=== PATIENT | male | born 1930 | race Caucasian/White ===

== ENCOUNTER 2018-06-14 18:55 | Inpatient (IN) | payer MEDICARE, BC ==
[2018-06-14 19:38] LABS: BASOPHIL % 0.3 % (0.0-0.4); Basophil (Absolute #) 0.02 (0-0.4); Eosinophil % 2.3 % (0.00-5.0); Eosinophil (Absolute #) 0.18 (0-0.5); Granulocyte Absolute (ANC) 5.94 (1.4-6.9); Hematocrit 40.3 % (42-50); Hemoglobin 12.8 gm/dl (12.5-18.0); Lymphocytes % 14.1 % (24.0-44.0); Mean Cell Volume 93.5 fl (78-100); Mean Corpuscular Hemoglobin 29.7 pg (26-32); Mean Corpuscular Hgb Concent. 31.8 g/dl (32-36); Mean Platelet Volume 8.6 fl (6-9.5); Monocyte (Absolute #) 0.57 (0.0-1.3); Monocytes % 7.3 % (0.0-12.0); Platelet Count 248 K/mm3 (150-450); Red Blood Count 4.31 M/mm3 (4.1-5.6); Red Cell Distribution Width 14.9 % (11.5-14.0); White Blood Count 7.8 K/mm3 (4.0-10.5)
[2018-06-14 19:47] LABS: INR 3.22 (0.8-3.0); PROTIME 37.9 SECONDS (8.83-12.87)
[2018-06-14 19:50] LABS: ALBUMIN 3.5 g/dL (3.5-5.0); ALKALINE PHOSPHATASE 81 U/L (38-126); ANION GAP 10.4 MEQ/L (5-15); BLOOD UREA NITROGEN 14 mg/dL (9-20); CHLORIDE 96 mmol/L (98-107); Calcium 8.7 mg/dL (8.4-10.2); Carbon Dioxide 34 mmol/L (22-30); Glucose 111 mg/dL (74-106); LIPASE 20 U/L (23-300); Potassium 3.3 mmol/L (3.5-5.1); SGOT/AST 13 U/L (17-59); SGPT/ALT 9 U/L (0-50); SODIUM 137 mmol/L (137-145); Total Protein 6.3 g/dL (6.3-8.2)
[2018-06-14] MEDS ORDERED: Klor Con 10 MEQ PO ONE (20:13)
--- NOTE | 2018-06-14 21:59 | ERPHSYRPT ---
- History of Present Illness Historian: shelter records Exam Limitations: clinical condition Patient Subjective Stated Complaint: pt arrived per ambulance for shortness of breath today and was placed on o2, but pt has no cos at present time. but he told ambulance that is abd is large and distended and hard and that is not normal for him. Triage Nursing Assessment: pt alert, but confused at time. skin w/d/p. resp easy ,chest clear, abd large distended,and firm, pt has fc in place with a leg bag and uring in bag Physician History: Pt was brought to the ED from [facility] for SOB. Pt in his room, complaining of severe abdominal distention. He is a poor historian, and can't get clear ROS and history from him. Pt denies SOB, abd pain, N/V. He just states "they are supposed to make a hole in my stomach and get all the air out". Timing/Duration: today Activities at Onset: none Quality: tightness Modifying Factors: Improves With: nothing Previous symptoms: recent hospitalization Allergies/Adverse Reactions: No Known Drug Allergies Allergy (Verified 06/14/18 19:07) Home Medications: Alendronate Sodium 70 mg [Fosamax 70 MG] 70 mg PO Q7D@0600 04/21/16 [ History] Ascorbic Acid [C-500] 500 mg PO DAILY 04/21/16 [History] Cephalexin Mh 500 mg [Keflex 500 mg] 500 mg PO TID 04/21/16 [History] Citalopram Hydrobromide 20 mg* [ceLEXa 20 MG] 20 mg PO DAILY 04/21/16 [ History] Digoxin [Digitek] 250 mcg PO DAILY 04/21/16 [History] Docusate Sodium 100 mg [Colace 100 MG] 100 mg PO BID 04/21/16 [History] Losartan Potassium [Cozaar] 50 mg PO DAILY 04/21/16 [History] Mag Hydrox/Al Hydrox/Simeth [Mylanta Maximum Strength Liq] 30 ml PO Q4HPRN PRN 04/21/16 [History] Multivitamin [Multivitamins] 1 each PO DAILY 04/21/16 [History] Oxycodone HCl/Acetaminophen [Percocet 5-325 mg Tablet] 1 - 2 each PO Q4-6HPRN PRN 04/21/16 [History] Polyethylene Glycol 3350 17 gm [Miralax Powder 17GM PACKET] 17 gm PO DAILY [History] Quetiapine Fumarate [Seroquel] 25 mg PO DAILY 04/21/16 [History] Tamsulosin HCl 0.4 mg [Flomax 0.4 MG] 0.4 mg PO BID 04/21/16 [History] Tramadol HCl 50 mg [Ultram 50 mg] 50 mg PO Q6H PRN PRN 04/21/16 [History] Warfarin Sodium 3 mg [Coumadin 3 MG] 3 mg PO DAILY 04/21/16 [History] Hx Tetanus, Diphtheria Vaccination/Date Given: No (UNKNOWN) Hx Influenza Vaccination/Date Given: Yes Hx Pneumococcal Vaccination/Date Given: Yes Immunizations Up to Date: No - Review of Systems Constitutional: Other (Pt is poor historian with dementia. Could not get clear history and ROS) Abdominal/Gastrointestinal: Other (abdominal distention) - Past Medical History Pertinent Past Medical History: Yes Neurological History: No Pertinent History ENT History: Cataracts Cardiac History: Hypertension Respiratory History: No Pertinent History Musculoskeletal History: Fractures, Osteoporosis History: Other Psycho-Social History: Depression Male Reproductive Disorders: Prostate Cancer Other Medical History: PROSTATE CA. MULTIPLE HEALING FRACTURES - Past Surgical History Past Surgical History: Yes Other Surgical History: hand surgery - Social History Smoking Status: Former smoker Exposure to second hand smoke: No Drug Use: none Patient Lives Alone: No Significant Family History: other (lung cancer father) - Nursing Vital Signs Nursing Vital Signs: Initial Vital Signs Temperature 97.2 F 06/14/18 18:57 Pulse Rate 96 H 06/14/18 18:57 Respiratory Rate 20 06/14/18 18:57 Blood Pressure 122/78 06/14/18 18:57 O2 Sat by Pulse Oximetry 98 06/14/18 18:57 Pain Scale Pain Intensity 0 - Physical Exam General Appearance: no apparent distress, alert Ears, Nose, Throat Exam: normal ENT inspection, pharynx normal, moist mucous membranes Respiratory Exam: other (no air movement on the right. Otherwise no wheeze or crackles were ascultated.) Cardiovascular Exam: normal heart sounds, irregular Gastrointestinal/Abdomen Exam: distention (marked) SpO2: 98 - Radiology Exams Abdomen X-ray Interpretation: Interpreted by me (SBO, marked dilated bowel loops) Chest X-ray Interpretation: Interpreted by me (Marked right sided pleural effusion) Ordered Tests: Active Orders 24 hr Category Date Time Status EKG-ER Only STAT Care 06/14/18 19:09 Active IV Insertion STAT Care 06/14/18 19:09 Active NG to Suction (Insertion) ROUTINE Care 06/14/18 22:10 Active NPO (ED) STAT Care 06/14/18 19:09 Active ABDOMEN AND PELVIS W/0 CONTRAS [CT] Stat Exams 06/14/18 21:40 Taken CHEST 2 VIEWS (PA AND LAT) Stat Exams 06/14/18 19:10 Taken CHEST WITHOUT CONTRAST [CT] Stat Exams 06/14/18 21:40 Taken KUB Stat Exams 06/14/18 19:10 Taken KUB Stat Exams 06/14/18 21:58 Taken BLOOD CULTURE Stat Lab 06/14/18 19:32 Received CBC W DIFF Stat Lab 06/14/18 19:27 Completed CMP Stat Lab 06/14/18 19:27 Completed LIPASE Stat Lab 06/14/18 19:27 Completed Lactic Acid Stat Lab 06/14/18 19:26 Completed PROTIME WITH INR Stat Lab 06/14/18 19:27 Completed TROPONIN Q3H Lab 06/14/18 19:27 Completed TROPONIN Q3H Lab 06/14/18 22:18 Completed TROPONIN Q3H Lab 06/15/18 01:15 Ordered TROPONIN Q3H Lab 06/15/18 04:15 Ordered TROPONIN Q3H Lab 06/15/18 07:15 Ordered UA W/RFX UR CULTURE Stat Lab 06/14/18 19:10 Uncollected Medication Summary Discontinued Medications Generic Name Dose Route Start Last Admin Trade Name Freq PRN Reason Stop Dose Admin Potassium Chloride 40 meq 06/14/18 20:13 06/14/18 22:03 Klor Con 10 Meq PO 06/14/18 20:14 Not Given STAT ONE Lab/Rad Data: Laboratory Result Diagrams 06/14/18 19:27 06/14/18 19:27 Laboratory Results 06/14/18 06/14/18 06/14/18 Range/Units 22:18 19:27 19:27 WBC (4.0-10.5) K/mm3 RBC (4.1-5.6) M/mm3 Hgb (12.5-18.0) gm/dl Hct (42-50) % MCV (78-100) fl MCH (26-32) pg MCHC (32-36) g/dl RDW (11.5-14.0) % Plt Count (150-450) K/mm3 MPV (6-9.5) fl Gran % (36.0-66.0) % Eos # (Auto) (0-0.5) Absolute Lymphs (auto) (1.0-4.6) Absolute Monos (auto) (0.0-1.3) Lymphocytes % (24.0-44.0) % Monocytes % (0.0-12.0) % Eosinophils % (0.00-5.0) % Basophils % (0.0-0.4) % Absolute Granulocytes (1.4-6.9) Basophils # (0-0.4) PT 37.9 H (8.83-12.87) SECONDS INR 3.22 H (0.8-3.0) Sodium (137-145) mmol/L Potassium (3.5-5.1) mmol/L Chloride (98-107) mmol/L Carbon Dioxide (22-30) mmol/L Anion Gap (5-15) MEQ/L BUN (9-20) mg/dL Creatinine (0.66-1.25) mg/dL Estimated GFR ML/MIN Glucose (74-106) mg/dL Lactic Acid (0.4-2.0) Calcium (8.4-10.2) mg/dL Total Bilirubin (0.2-1.3) mg/dL AST (17-59) U/L ALT (0-50) U/L Alkaline Phosphatase (38-126) U/L Troponin I 0.012 0.012 (0.000-0.034) ng/mL Serum Total Protein (6.3-8.2) g/dL Albumin (3.5-5.0) g/dL Lipase (23-300) U/L 06/14/18 06/14/18 06/14/18 Range/Units 19:27 19:27 19:26 WBC 7.8 (4.0-10.5) K/mm3 RBC 4.31 (4.1-5.6) M/mm3 Hgb 12.8 (12.5-18.0) gm/dl Hct 40.3 L (42-50) % MCV 93.5 (78-100) fl MCH 29.7 (26-32) pg MCHC 31.8 L (32-36) g/dl RDW 14.9 H (11.5-14.0) % Plt Count 248 (150-450) K/mm3 MPV 8.6 (6-9.5) fl Gran % 76.0 H (36.0-66.0) % Eos # (Auto) 0.18 (0-0.5) Absolute Lymphs (auto) 1.10 (1.0-4.6) Absolute Monos (auto) 0.57 (0.0-1.3) Lymphocytes % 14.1 L (24.0-44.0) % Monocytes % 7.3 (0.0-12.0) % Eosinophils % 2.3 (0.00-5.0) % Basophils % 0.3 (0.0-0.4) % Absolute Granulocytes 5.94 (1.4-6.9) Basophils # 0.02 (0-0.4) PT (8.83-12.87) SECONDS INR (0.8-3.0) Sodium 137 (137-145) mmol/L Potassium 3.3 L (3.5-5.1) mmol/L Chloride 96 L (98-107) mmol/L Carbon Dioxide 34 H (22-30) mmol/L Anion Gap 10.4 (5-15) MEQ/L BUN 14 (9-20) mg/dL Creatinine 1.00 (0.66-1.25) mg/dL Estimated GFR > 60.0 ML/MIN Glucose 111 H (74-106) mg/dL Lactic Acid 1.0 (0.4-2.0) Calcium 8.7 (8.4-10.2) mg/dL Total Bilirubin 0.70 (0.2-1.3) mg/dL AST 13 L (17-59) U/L ALT 9 (0-50) U/L Alkaline Phosphatase 81 (38-126) U/L Troponin I (0.000-0.034) ng/mL Serum Total Protein 6.3 (6.3-8.2) g/dL Albumin 3.5 (3.5-5.0) g/dL Lipase 20 L (23-300) U/L - Progress Progress: unchanged Discussed with : Stephenie Will see patient in: hospital (full admit) - Departure Time of Disposition: 00:14 Departure Disposition: In-patient Admission Clinical Impression: Pleural effusion, History of prostate cancer, [place] Condition: Stable Critical Care Time: No Referrals: DOCTOR,NO FAMILY [Primary Care Provider] -
[2018-06-15] MEDS ORDERED: PROVENTIL 2.5 MG/3 ML NEB IH PRN (00:16)
[2018-06-15] MEDS ORDERED: Zofran 4 MG/2 ML VIAL IV PRN (00:16)
[2018-06-15 01:45] LABS: Appearance CLOUDY (CLEAR); Bacteria MODERATE /HPF (NEGATIVE); Bilirubin NEGATIVE (NEGATIVE); Blood SMALL Ery/ul (0-5); Glucose NEGATIVE (NEGATIVE); Ketones TRACE (NEGATIVE); Leukocyte Esterase LARGE (NEGATIVE); Mucus SLIGHT /HPF (NEGATIVE); Nitrite NEGATIVE (NEGATIVE); Protein,Urine Dip 30 (Negative); RBC 51-100 /HPF (0-2); Specific Gravity 1.017 (1.005-1.025); Urobilinogen NEGATIVE mg/dL (0-1); WBC >100 /HPF (0-5)
[2018-06-15] MEDS ORDERED: ROCEPHIN 1 Gm-D5w 50 ml Bag** 1 G/50 ML IVPB IV STA (01:49)
[2018-06-15] MEDS ORDERED: ROCEPHIN 1 Gm-D5w 50 ml Bag** 1 G/50 ML IVPB IV ONE (01:56)
[2018-06-15] MEDS ORDERED: DUONEB 0.5-3 MG/3 ml Neb IH PRN (04:23)
[2018-06-15 05:02] LABS: ALBUMIN 2.9 g/dL (3.5-5.0); ALKALINE PHOSPHATASE 62 U/L (38-126); ANION GAP 6.8 MEQ/L (5-15); BLOOD UREA NITROGEN 13 mg/dL (9-20); CHLORIDE 98 mmol/L (98-107); Calcium 8.1 mg/dL (8.4-10.2); Carbon Dioxide 35 mmol/L (22-30); Creatinine 1 0.87 mg/dL (0.66-1.25); Glucose 99 mg/dL (74-106); Potassium 3.1 mmol/L (3.5-5.1); SGOT/AST 11 U/L (17-59); SGPT/ALT 8 U/L (0-50); SODIUM 136 mmol/L (137-145); Total Protein 5.3 g/dL (6.3-8.2)
[2018-06-15 05:58] LABS: BASOPHIL % 0.3 % (0.0-0.4); Basophil (Absolute #) 0.02 (0-0.4); Eosinophil % 3.8 % (0.00-5.0); Eosinophil (Absolute #) 0.23 (0-0.5); Granulocytes % 67.5 % (36.0-66.0); Hematocrit 36.2 % (42-50); Hemoglobin 11.3 gm/dl (12.5-18.0); Lymphocyte (Absolute #) 1.09 (1.0-4.6); Mean Cell Volume 93.3 fl (78-100); Mean Corpuscular Hemoglobin 29.1 pg (26-32); Mean Corpuscular Hgb Concent. 31.2 g/dl (32-36); Mean Platelet Volume 9.1 fl (6-9.5); Monocyte (Absolute #) 0.63 (0.0-1.3); Monocytes % 10.4 % (0.0-12.0); Platelet Count 243 K/mm3 (150-450); Red Blood Count 3.88 M/mm3 (4.1-5.6); Red Cell Distribution Width 14.9 % (11.5-14.0); White Blood Count 6.1 K/mm3 (4.0-10.5)
--- NOTE | 2018-06-15 08:48 | XRAY ---
Indication: Short of breath. Multiple contiguous axial images obtained through the chest without contrast as ordered. Comparison: None Moderate right and mild left pleural effusions with compressive atelectasis. Additional scattered fibrosis/scarring, right greater than left. Tiny left lower lobe calcified granuloma. Heart is borderline enlarged without pericardial effusion. Aorta is normal in course and caliber. Scattered aortic and coronary calcifications. Subcarinal chunky calcified node. No pathologic mediastinal lymphadenopathy. Enlarged right thyroid gland with bilateral thyroid calcifications. NG tube traverses the chest with the tip in the stomach. Bony thorax demonstrates osteopenia, flowing osteophytes throughout the spine, and old right rib fractures. CT abdomen/pelvis reported separately. Impression: 1. Borderline cardiomegaly with bilateral pleural effusions, right greater than left. Rule out cardiac decompensation/fluid overload. Superimposed pneumonia not completely excluded. 2. Incidental enlarged right thyroid gland with bilateral thyroid calcifications, extensive arteriosclerotic calcifications, evidence for old granulomatous disease, and NG tube in situ. Comment: Preliminary interpretation was made by [facility]. No critical discrepancy. CT DI 17.78
--- NOTE | 2018-06-15 09:06 | XRAY ---
Indication: Short of breath. Comparison: April 21, 2016. Portable chest demonstrates new large right effusion and small left effusion with compressive atelectasis. Heart remains enlarged with aortic calcifications. Bony thorax intact again with osteopenia and degenerative changes.
--- NOTE | 2018-06-15 09:08 | XRAY ---
Indication: Distended abdomen. Comparison: None KUB demonstrates air distended colon obscuring solid organs. No large free air. Scattered vascular calcifications. Osseous structures demonstrates osteopenia, old right rib fractures, old bilateral pubic bone fractures, multilevel lumbar kyphoplasty, right hip arthroplasty, and old proximal left femur fracture with orthopedic hardware. Impression: Abnormal air distended colon further detailed on same-day CT abdomen/pelvis exam.
--- NOTE | 2018-06-15 09:10 | XRAY ---
Indication: NG tube placement. Limited KUB including the lower chest demonstrates NG tube coursing the chest with the tip in the left upper quadrant of the abdomen. Same-day CT exam confirms NG tube tip in the stomach lumen.
--- NOTE | 2018-06-15 09:11 | XRAY ---
Indication: Abdominal distention. Small bowel obstruction. Multiple contiguous axial images obtained through the abdomen and pelvis without contrast as ordered. Comparison: None CT chest reported separately. NG tube tip in the stomach lumen. Right hip bipolar prosthesis and left proximal orthopedic fixation hardware produces extreme beam artifact limiting these levels. Noncontrasted stomach and small bowel loops appear nonobstructed. The colon is abnormally air distended up to 12 cm in diameter with some fluid leveling. This is seen to the level of the proximal sigmoid without obvious focal mass/lesion. Remaining sigmoid colon appears decompressed with diverticulosis. Normal rectal bowel gas. No free fluid/air. At least 2 gallstones, largest 1 cm. Scattered calcified splenic granulomas. Valderrama balloon catheter in situ. Remaining liver, gallbladder, pancreas, adrenal glands, kidneys, ureters, and bladder are unremarkable for noncontrast exam. Extensive scattered vascular calcifications without AAA. Osseous structures demonstrates osteopenia, L2-L5 kyphoplasty with associated compression fractures, right lower rib fractures, and old bilateral inferior pubic bone fractures. No ventral or inguinal hernias. Impression: 1. Abnormal distended colon to the level of the sigmoid suggestive of obstruction. However there is no focal colonic mass/lesion or abnormal distended small bowel loops supporting obstruction. Also normal distal rectal bowel gas. Aspen syndrome can have a similar presentation. Colonoscopy or fluoroscopic colon exam using water-soluble Gastrografin may yield further information if clinically warranted. 2. Sigmoid diverticulosis without diverticulitis, gallstones, and extensive arteriosclerotic disease. Comment: Preliminary interpretation was made by [facility]. No discrepancy. CT DI 23.52
--- NOTE | 2018-06-15 09:15 | PCM.HP ---
History of Present Illness - Chief Complaint Chief Complaint: pleural effusion, UTI, SBO History of Present Illness: is a 88 year old male.Pt was brought to the ED from [facility] for SOB. Pt in his room, complaining of severe abdominal distention. He is a poor historian , and can't get clear ROS and history from him. Pt denies SOB, abd pain, N/V. He just states "they are supposed to make a hole in my stomach and get all the air out". - Review of Systems Constitutional: No Fever, No Chills Eyes: No Symptoms Ears, Nose, & Throat: No Symptoms Respiratory: No Cough, No Short Of Breath Cardiac: No Chest Pain, No Edema, No Syncope Abdominal/Gastrointestinal: No Abdominal Pain, No Nausea, No Vomiting, No Diarrhea Genitourinary Symptoms: No Dysuria Musculoskeletal: No Back Pain, No Neck Pain Skin: No Rash Neurological: No Dizziness, No Focal Weakness, No Sensory Changes Psychological: No Symptoms Endocrine: No Symptoms Hematologic/Lymphatic: No Symptoms Immunological/Allergic: No Symptoms Medications & Allergies Home Medications: Home Medication List Alendronate Sodium 70 mg [Fosamax 70 MG] 70 mg PO Q7D 04/21/16 [History Confirmed 06/15/18] Ascorbic Acid [C-500] 500 mg PO DAILY 04/21/16 [History Confirmed 06/15/18] Docusate Sodium 100 mg [Colace 100 MG] 100 mg PO BID 04/21/16 [History Confirmed 06/15/18] Losartan Potassium [Cozaar] 25 mg PO DAILY 04/21/16 [History Confirmed 06/15/18] Mag Hydrox/Al Hydrox/Simeth [Mylanta Maximum Strength Liq] 15 ml PO Q4HPRN PRN 04/21/16 [History Confirmed 06/15/18] Polyethylene Glycol 3350 17 gm [Miralax Powder 17GM PACKET] 17 gm PO DAILY [History Confirmed 06/15/18] Warfarin Sodium 3 mg [Coumadin 3 MG] 3 mg PO UD 04/21/16 [History Confirmed 06/15/18] Bisacodyl 5 mg [Dulcolax 5 mg] 2 tab PO DAILY PRN 06/15/18 [History Confirmed 06/15/18] Dextran 70/Hypromellose/Pf [Artificial Tears Drops] 1 drop BID 06/15/18 [ History Confirmed 06/15/18] Diltiazem HCl 240 mg [Cardizem CD 240 MG] 1 cap PO DAILY 06/15/18 [ History Confirmed 06/15/18] Ferrous Sulfate 325 mg [Feosol 325 mg] 1 tab PO BID 06/15/18 [History Confirmed 06/15/18] Gabapentin [Neurontin] 300 mg PO DAILY 06/15/18 [History Confirmed 06/15/18] Ipratropium/Albuterol Sulfate [Combivent Respimat 20-100 Mcg] 1 puff IH Q6H PRN 06/15/18 [History Confirmed 06/15/18] Ipratropium/Albuterol Sulfate [Iprat-Albut 0.5-3(2.5) mg/3 ml] 1 vial IH Q6H PRN 06/15/18 [History Confirmed 06/15/18] Magnesium Hydroxide 30 ml [Milk of Magnesia 30 ml] 30 ml PO DAILY PRN [History Confirmed 06/15/18] Mirtazapine [Remeron] 15 mg PO DAILY 06/15/18 [History Confirmed 06/15/18] Omeprazole 20 mg PO DAILY 06/15/18 [History Confirmed 06/15/18] Sennosides/Docusate Sodium [Senna-S Tablet] 2 tab PO DAILY 06/15/18 [History Confirmed 06/15/18] Simethicone 160 mg PO Q4H PRN 06/15/18 [History Confirmed 06/15/18] Warfarin Sodium 2 mg [Coumadin 2 MG] 4 mg PO UD 06/15/18 [History Confirmed 06/15/18] Allergies/Adverse Reactions: Allergies Allergy/AdvReac Type Severity Reaction Status Date / Time No Known Drug Allergies Allergy Verified 06/14/18 19:07 - Past Medical History Past Medical History: Yes Neurological History: No Pertinent History ENT History: Cataracts Cardiac History: Arrhythmia, Hypertension Respiratory History: No Pertinent History Endocrine Medical History: No Pertinent History Musculoskelatal History: Arthritis, Fractures, Osteoporosis GI Medical History: GERD, Other History: Other Pyscho-Social History: Depression Male Reproductive Disorders: Prostate Cancer, Prostate Problems Comment: PROSTATE CA. MULTIPLE HEALING FRACTURES. MEGACOLON. AFIB - Past Surgical History Past Surgical History: Yes Neuro Surgical History: No Pertinent History Cardiac History: No Pertinent History Respiratory Surgery: No Pertinent History GI Surgical History: No Pertinent History Genitourinary Surgical Hx: No Pertinent History Musculskeletal Surgical Hx: Orthopedic Surgery Male Surgical History: Prostate Surgery Other Surgical History: hand surgery - Social History Smoking Status: Unknown if ever smoked Exposure to second hand smoke: No Alcohol: None Drug Use: none Significant Family History: other (lung cancer father) - Physical Exam Vital Signs: Vital Signs - 24 hr Temp Pulse Resp BP Pulse Ox 06/15/18 07:25 98 F 80 20 130/80 97 06/15/18 07:07 97 06/15/18 04:15 86 18 96 06/15/18 03:12 97.9 F 79 18 129/59 95 06/15/18 00:15 98 06/14/18 23:40 73 95 06/14/18 22:36 51 L 16 129/59 99 06/14/18 21:31 73 18 140/76 98 06/14/18 18:57 97.2 F 96 H 20 122/78 98 Oxygen-Last 24 hours O2 Percentage 2 Liters = 28% O2 Percentage 2 Liters = 28% O2 Percentage 2 Liters = 28% O2 Percentage 2 Liters = 28% O2 Percentage 2 Liters = 28% General Appearance: no apparent distress, alert Neurologic Exam: alert, oriented x 3, cooperative, normal mood/affect, nml cerebellar function, nml station & gait, sensation nml, No motor deficits Eye Exam: PERRL/EOMI, eyes nml inspection Ears, Nose, Throat Exam: normal ENT inspection, TMs normal, pharynx normal, moist mucous membranes Neck Exam: normal inspection, non-tender, supple, full range of motion Respiratory Exam: normal breath sounds, lungs clear, No respiratory distress Cardiovascular Exam: regular rate/rhythm, normal heart sounds, normal peripheral pulses Gastrointestinal/Abdomen Exam: soft, distention, guarding, No tenderness, No mass Back Exam: normal inspection, normal range of motion, No CVA tenderness, No vertebral tenderness Extremity Exam: normal inspection, normal range of motion, pelvis stable Skin Exam: normal color, warm, dry, No rash Lymphatic Exam: No adenopathy Results - Labs Lab/Micro Results: Lab Results-Last 24 Hours 06/14/18 06/14/18 06/14/18 Range/Units 19:26 19:27 19:27 WBC 7.8 (4.0-10.5) K/mm3 RBC 4.31 (4.1-5.6) M/mm3 Hgb 12.8 (12.5-18.0) gm/dl Hct 40.3 L (42-50) % MCV 93.5 (78-100) fl MCH 29.7 (26-32) pg MCHC 31.8 L (32-36) g/dl RDW 14.9 H (11.5-14.0) % Plt Count 248 (150-450) K/mm3 MPV 8.6 (6-9.5) fl Gran % 76.0 H (36.0-66.0) % Eos # (Auto) 0.18 (0-0.5) Absolute Lymphs (auto) 1.10 (1.0-4.6) Absolute Monos (auto) 0.57 (0.0-1.3) Lymphocytes % 14.1 L (24.0-44.0) % Monocytes % 7.3 (0.0-12.0) % Eosinophils % 2.3 (0.00-5.0) % Basophils % 0.3 (0.0-0.4) % Absolute Granulocytes 5.94 (1.4-6.9) Basophils # 0.02 (0-0.4) PT (8.83-12.87) SECONDS INR (0.8-3.0) Sodium 137 (137-145) mmol/L Potassium 3.3 L (3.5-5.1) mmol/L Chloride 96 L (98-107) mmol/L Carbon Dioxide 34 H (22-30) mmol/L Anion Gap 10.4 (5-15) MEQ/L BUN 14 (9-20) mg/dL Creatinine 1.00 (0.66-1.25) mg/dL Estimated GFR > 60.0 ML/MIN Glucose 111 H (74-106) mg/dL Lactic Acid 1.0 (0.4-2.0) Calcium 8.7 (8.4-10.2) mg/dL Total Bilirubin 0.70 (0.2-1.3) mg/dL AST 13 L (17-59) U/L ALT 9 (0-50) U/L Alkaline Phosphatase 81 (38-126) U/L Troponin I (0.000-0.034) ng/mL Serum Total Protein 6.3 (6.3-8.2) g/dL Albumin 3.5 (3.5-5.0) g/dL Prealbumin (17.6-36.0) mg/dL Lipase 20 L (23-300) U/L Urine Color (YELLOW) Urine Appearance (CLEAR) Urine pH (5-6) Ur Specific [place] (1.005-1.025) Urine Protein (Negative) Urine Ketones (NEGATIVE) Urine Blood (0-5) Pee/ul Urine Nitrite (NEGATIVE) Urine Bilirubin (NEGATIVE) Urine Urobilinogen (0-1) mg/dL Ur Leukocyte Esterase (NEGATIVE) Urine WBC (Auto) (0-5) /HPF Urine RBC (Auto) (0-2) /HPF U Hyaline Cast (Auto) (0-2) /LPF U Epithel Cells (Auto) (FEW) /HPF Urine Bacteria (Auto) (NEGATIVE) /HPF Other Casts (Auto) (NEGATIVE) /LPF Urine Mucus (Auto) (NEGATIVE) /HPF Urine Culture Reflexed (NO) Urine Glucose (NEGATIVE) mg/dL 06/14/18 06/14/18 06/14/18 Range/Units 19:27 19:27 22:18 WBC (4.0-10.5) K/mm3 RBC (4.1-5.6) M/mm3 Hgb (12.5-18.0) gm/dl Hct (42-50) % MCV (78-100) fl MCH (26-32) pg MCHC (32-36) g/dl RDW (11.5-14.0) % Plt Count (150-450) K/mm3 MPV (6-9.5) fl Gran % (36.0-66.0) % Eos # (Auto) (0-0.5) Absolute Lymphs (auto) (1.0-4.6) Absolute Monos (auto) (0.0-1.3) Lymphocytes % (24.0-44.0) % Monocytes % (0.0-12.0) % Eosinophils % (0.00-5.0) % Basophils % (0.0-0.4) % Absolute Granulocytes (1.4-6.9) Basophils # (0-0.4) PT 37.9 H (8.83-12.87) SECONDS INR 3.22 H (0.8-3.0) Sodium (137-145) mmol/L Potassium (3.5-5.1) mmol/L Chloride (98-107) mmol/L Carbon Dioxide (22-30) mmol/L Anion Gap (5-15) MEQ/L BUN (9-20) mg/dL Creatinine (0.66-1.25) mg/dL Estimated GFR ML/MIN Glucose (74-106) mg/dL Lactic Acid (0.4-2.0) Calcium (8.4-10.2) mg/dL Total Bilirubin (0.2-1.3) mg/dL AST (17-59) U/L ALT (0-50) U/L Alkaline Phosphatase (38-126) U/L Troponin I 0.012 0.012 (0.000-0.034) ng/mL Serum Total Protein (6.3-8.2) g/dL Albumin (3.5-5.0) g/dL Prealbumin (17.6-36.0) mg/dL Lipase (23-300) U/L Urine Color (YELLOW) Urine Appearance (CLEAR) Urine pH (5-6) Ur Specific [place] (1.005-1.025) Urine Protein (Negative) Urine Ketones (NEGATIVE) Urine Blood (0-5) Pee/ul Urine Nitrite (NEGATIVE) Urine Bilirubin (NEGATIVE) Urine Urobilinogen (0-1) mg/dL Ur Leukocyte Esterase (NEGATIVE) Urine WBC (Auto) (0-5) /HPF Urine RBC (Auto) (0-2) /HPF U Hyaline Cast (Auto) (0-2) /LPF U Epithel Cells (Auto) (FEW) /HPF Urine Bacteria (Auto) (NEGATIVE) /HPF Other Casts (Auto) (NEGATIVE) /LPF Urine Mucus (Auto) (NEGATIVE) /HPF Urine Culture Reflexed (NO) Urine Glucose (NEGATIVE) mg/dL 06/15/18 06/15/18 06/15/18 Range/Units 01:21 01:37 04:34 WBC (4.0-10.5) K/mm3 RBC (4.1-5.6) M/mm3 Hgb (12.5-18.0) gm/dl Hct (42-50) % MCV (78-100) fl MCH (26-32) pg MCHC (32-36) g/dl RDW (11.5-14.0) % Plt Count (150-450) K/mm3 MPV (6-9.5) fl Gran % (36.0-66.0) % Eos # (Auto) (0-0.5) Absolute Lymphs (auto) (1.0-4.6) Absolute Monos (auto) (0.0-1.3) Lymphocytes % (24.0-44.0) % Monocytes % (0.0-12.0) % Eosinophils % (0.00-5.0) % Basophils % (0.0-0.4) % Absolute Granulocytes (1.4-6.9) Basophils # (0-0.4) PT (8.83-12.87) SECONDS INR (0.8-3.0) Sodium (137-145) mmol/L Potassium (3.5-5.1) mmol/L Chloride (98-107) mmol/L Carbon Dioxide (22-30) mmol/L Anion Gap (5-15) MEQ/L BUN (9-20) mg/dL Creatinine (0.66-1.25) mg/dL Estimated GFR ML/MIN Glucose (74-106) mg/dL Lactic Acid (0.4-2.0) Calcium (8.4-10.2) mg/dL Total Bilirubin (0.2-1.3) mg/dL AST (17-59) U/L ALT (0-50) U/L Alkaline Phosphatase (38-126) U/L Troponin I 0.013 0.013 (0.000-0.034) ng/mL Serum Total Protein (6.3-8.2) g/dL Albumin (3.5-5.0) g/dL Prealbumin (17.6-36.0) mg/dL Lipase (23-300) U/L Urine Color LISBETH (YELLOW) Urine Appearance CLOUDY (CLEAR) Urine pH 5.0 (5-6) Ur Specific [place] 1.017 (1.005-1.025) Urine Protein 30 (Negative) Urine Ketones TRACE (NEGATIVE) Urine Blood SMALL (0-5) Pee/ul Urine Nitrite NEGATIVE (NEGATIVE) Urine Bilirubin NEGATIVE (NEGATIVE) Urine Urobilinogen NEGATIVE (0-1) mg/dL Ur Leukocyte Esterase LARGE (NEGATIVE) Urine WBC (Auto) >100 (0-5) /HPF Urine RBC (Auto) 51-100 (0-2) /HPF U Hyaline Cast (Auto) 6-10 (0-2) /LPF U Epithel Cells (Auto) NONE (FEW) /HPF Urine Bacteria (Auto) MODERATE (NEGATIVE) /HPF Other Casts (Auto) 2-5 (NEGATIVE) /LPF Urine Mucus (Auto) SLIGHT (NEGATIVE) /HPF Urine Culture Reflexed YES (NO) Urine Glucose NEGATIVE (NEGATIVE) mg/dL 06/15/18 06/15/18 06/15/18 Range/Units 04:34 04:34 04:34 WBC 6.1 (4.0-10.5) K/mm3 RBC 3.88 L (4.1-5.6) M/mm3 Hgb 11.3 L (12.5-18.0) gm/dl Hct 36.2 L (42-50) % MCV 93.3 (78-100) fl MCH 29.1 (26-32) pg MCHC 31.2 L (32-36) g/dl RDW 14.9 H (11.5-14.0) % Plt Count 243 (150-450) K/mm3 MPV 9.1 (6-9.5) fl Gran % 67.5 H (36.0-66.0) % Eos # (Auto) 0.23 (0-0.5) Absolute Lymphs (auto) 1.09 (1.0-4.6) Absolute Monos (auto) 0.63 (0.0-1.3) Lymphocytes % 18.0 L (24.0-44.0) % Monocytes % 10.4 (0.0-12.0) % Eosinophils % 3.8 (0.00-5.0) % Basophils % 0.3 (0.0-0.4) % Absolute Granulocytes 4.10 (1.4-6.9) Basophils # 0.02 (0-0.4) PT (8.83-12.87) SECONDS INR (0.8-3.0) Sodium 136 L (137-145) mmol/L Potassium 3.1 L (3.5-5.1) mmol/L Chloride 98 (98-107) mmol/L Carbon Dioxide 35 H (22-30) mmol/L Anion Gap 6.8 (5-15) MEQ/L BUN 13 (9-20) mg/dL Creatinine 0.87 (0.66-1.25) mg/dL Estimated GFR > 60.0 ML/MIN Glucose 99 (74-106) mg/dL Lactic Acid (0.4-2.0) Calcium 8.1 L (8.4-10.2) mg/dL Total Bilirubin 0.50 (0.2-1.3) mg/dL AST 11 L (17-59) U/L ALT 8 (0-50) U/L Alkaline Phosphatase 62 (38-126) U/L Troponin I (0.000-0.034) ng/mL Serum Total Protein 5.3 L (6.3-8.2) g/dL Albumin 2.9 L (3.5-5.0) g/dL Prealbumin 7.37 L (17.6-36.0) mg/dL Lipase (23-300) U/L Urine Color (YELLOW) Urine Appearance (CLEAR) Urine pH (5-6) Ur Specific [place] (1.005-1.025) Urine Protein (Negative) Urine Ketones (NEGATIVE) Urine Blood (0-5) Pee/ul Urine Nitrite (NEGATIVE) Urine Bilirubin (NEGATIVE) Urine Urobilinogen (0-1) mg/dL Ur Leukocyte Esterase (NEGATIVE) Urine WBC (Auto) (0-5) /HPF Urine RBC (Auto) (0-2) /HPF U Hyaline Cast (Auto) (0-2) /LPF U Epithel Cells (Auto) (FEW) /HPF Urine Bacteria (Auto) (NEGATIVE) /HPF Other Casts (Auto) (NEGATIVE) /LPF Urine Mucus (Auto) (NEGATIVE) /HPF Urine Culture Reflexed (NO) Urine Glucose (NEGATIVE) mg/dL - Radiology Impressions Radiology Exams & Impressions: Radiology Procedures Category Date Time Status ABDOMEN 2 VIEW Routine Exams 06/15/18 09:10 Ordered ABDOMEN AND PELVIS W/0 CONTRAS [CT] Stat Exams 06/14/18 21:40 Completed CHEST 2 VIEWS (PA AND LAT) Stat Exams 06/14/18 19:10 Completed CHEST WITHOUT CONTRAST [CT] Stat Exams 06/14/18 21:40 Completed KUB Stat Exams 06/14/18 19:10 Completed KUB Stat Exams 06/14/18 21:58 Completed - Other Procedures and Tests Respiratory Therapy 06/15/18 00:16 Oxygen Nasal Cannula 2 lpm 06/15/18 04:27 Respiratory Therapy Assessment DAILY 06/15/18 04:28 Peak Expiratory Flow Rate DAILY Assessment/Plan (1) Megacolon Current Visit: Yes Status: Acute Onset Date: ~06/15/18 Assessment & Plan: Last Vital Signs Temp 98 F 06/15/18 07:25 Pulse 80 06/15/18 07:25 Resp 20 06/15/18 07:25 BP 130/80 06/15/18 07:25 Pulse Ox 97 06/15/18 07:25 Allergies No Known Drug Allergies Allergy (Verified 06/14/18 19:07) Active Medications Albuterol/Ipratropium (Duoneb 0.5-3 Mg/3 Ml Neb) 3 ml IH Q6HPRN PRN PRN Reason: SHORTNESS OF BREATH/WHEEZING Stop: 07/15/18 04:22 Ceftriaxone Sodium/Dextrose (Rocephin 1 Gm-D5w 50 Ml Bag) 1 g in 50 mls @ 200 mls/hr IV Q24H22 [facility] Stop: 07/15/18 21:59 Ondansetron HCl (Zofran 4 Mg/2 Ml Vial) 4 mg IV Q6H PRN PRN PRN Reason: NAUSEA/VOMITING Stop: 07/15/18 00:15 Pantoprazole Sodium (Protonix 40 Mg Iv) 40 mg IV Q24H10 [facility] Stop: 07/15/18 09:59 Intake & Output 06/14/18 06/15/18 11:59 11:59 Intake Total 0 Balance 0 Weight 77.8 kg Orders 06/15/18 03:49 Infection Control Consult ROUTINE Technical Assistance Consultant/Discharge Plan OT Screen per Nursing Assess ONCE PT Screen per Nursing Assess ONCE ST Screen per Nursing Assess once 06/15/18 04:23 Albuterol/Ipratropium 3ml Neb* [DUONEB 0.5-3 MG/3 ml Neb] 3 ml IH Q6HPRN PRN 06/15/18 04:27 Pulse Oximetry .spot check Respiratory Therapy Assessment DAILY 06/15/18 04:28 Peak Expiratory Flow Rate DAILY Lab Tests 06/14/18 06/14/18 06/14/18 19:26 19:27 19:27 WBC 7.8 RBC 4.31 Hgb 12.8 Hct 40.3 L MCV 93.5 MCH 29.7 MCHC 31.8 L RDW 14.9 H Plt Count 248 MPV 8.6 Gran % 76.0 H Eos # (Auto) 0.18 Absolute Lymphs (auto) 1.10 Absolute Monos (auto) 0.57 Lymphocytes % 14.1 L Monocytes % 7.3 Eosinophils % 2.3 Basophils % 0.3 Absolute Granulocytes 5.94 Basophils # 0.02 PT INR Sodium 137 Potassium 3.3 L Chloride 96 L Carbon Dioxide 34 H Anion Gap 10.4 BUN 14 Creatinine 1.00 Estimated GFR > 60.0 Glucose 111 H Lactic Acid 1.0 Calcium 8.7 Total Bilirubin 0.70 AST 13 L ALT 9 Alkaline Phosphatase 81 Troponin I Serum Total Protein 6.3 Albumin 3.5 Prealbumin Lipase 20 L Urine Color Urine Appearance Urine pH Ur Specific [place] Urine Protein Urine Ketones Urine Blood Urine Nitrite Urine Bilirubin Urine Urobilinogen Ur Leukocyte Esterase Urine WBC (Auto) Urine RBC (Auto) U Hyaline Cast (Auto) U Epithel Cells (Auto) Urine Bacteria (Auto) Other Casts (Auto) Urine Mucus (Auto) Urine Culture Reflexed Urine Glucose 06/14/18 06/14/18 06/14/18 19:27 19:27 22:18 WBC RBC Hgb Hct MCV MCH MCHC RDW Plt Count MPV Gran % Eos # (Auto) Absolute Lymphs (auto) Absolute Monos (auto) Lymphocytes % Monocytes % Eosinophils % Basophils % Absolute Granulocytes Basophils # PT 37.9 H INR 3.22 H Sodium Potassium Chloride Carbon Dioxide Anion Gap BUN Creatinine Estimated GFR Glucose Lactic Acid Calcium Total Bilirubin AST ALT Alkaline Phosphatase Troponin I 0.012 0.012 Serum Total Protein Albumin Prealbumin Lipase Urine Color Urine Appearance Urine pH Ur Specific [place] Urine Protein Urine Ketones Urine Blood Urine Nitrite Urine Bilirubin Urine Urobilinogen Ur Leukocyte Esterase Urine WBC (Auto) Urine RBC (Auto) U Hyaline Cast (Auto) U Epithel Cells (Auto) Urine Bacteria (Auto) Other Casts (Auto) Urine Mucus (Auto) Urine Culture Reflexed Urine Glucose 06/15/18 06/15/18 06/15/18 01:21 01:37 04:34 WBC RBC Hgb Hct MCV MCH MCHC RDW Plt Count MPV Gran % Eos # (Auto) Absolute Lymphs (auto) Absolute Monos (auto) Lymphocytes % Monocytes % Eosinophils % Basophils % Absolute Granulocytes Basophils # PT INR Sodium Potassium Chloride Carbon Dioxide Anion Gap BUN Creatinine Estimated GFR Glucose Lactic Acid Calcium Total Bilirubin AST ALT Alkaline Phosphatase Troponin I 0.013 0.013 Serum Total Protein Albumin Prealbumin Lipase Urine Color LISBETH Urine Appearance CLOUDY Urine pH 5.0 Ur Specific [place] 1.017 Urine Protein 30 Urine Ketones TRACE Urine Blood SMALL Urine Nitrite NEGATIVE Urine Bilirubin NEGATIVE Urine Urobilinogen NEGATIVE Ur Leukocyte Esterase LARGE Urine WBC (Auto) >100 Urine RBC (Auto) 51-100 U Hyaline Cast (Auto) 6-10 U Epithel Cells (Auto) NONE Urine Bacteria (Auto) MODERATE Other Casts (Auto) 2-5 Urine Mucus (Auto) SLIGHT Urine Culture Reflexed YES Urine Glucose NEGATIVE 06/15/18 06/15/18 06/15/18 04:34 04:34 04:34 WBC 6.1 RBC 3.88 L Hgb 11.3 L Hct 36.2 L MCV 93.3 MCH 29.1 MCHC 31.2 L RDW 14.9 H Plt Count 243 MPV 9.1 Gran % 67.5 H Eos # (Auto) 0.23 Absolute Lymphs (auto) 1.09 Absolute Monos (auto) 0.63 Lymphocytes % 18.0 L Monocytes % 10.4 Eosinophils % 3.8 Basophils % 0.3 Absolute Granulocytes 4.10 Basophils # 0.02 PT INR Sodium 136 L Potassium 3.1 L Chloride 98 Carbon Dioxide 35 H Anion Gap 6.8 BUN 13 Creatinine 0.87 Estimated GFR > 60.0 Glucose 99 Lactic Acid Calcium 8.1 L Total Bilirubin 0.50 AST 11 L ALT 8 Alkaline Phosphatase 62 Troponin I Serum Total Protein 5.3 L Albumin 2.9 L Prealbumin 7.37 L Lipase Urine Color Urine Appearance Urine pH Ur Specific [place] Urine Protein Urine Ketones Urine Blood Urine Nitrite Urine Bilirubin Urine Urobilinogen Ur Leukocyte Esterase Urine WBC (Auto) Urine RBC (Auto) U Hyaline Cast (Auto) U Epithel Cells (Auto) Urine Bacteria (Auto) Other Casts (Auto) Urine Mucus (Auto) Urine Culture Reflexed Urine Glucose Code(s): K59.39 - OTHER MEGACOLON (2) Pleural effusion Current Visit: Yes Status: Acute Onset Date: ~06/15/18 Code(s): J90 - PLEURAL EFFUSION, NOT ELSEWHERE CLASSIFIED (3) SBO (small bowel obstruction) Current Visit: Yes Status: Acute Onset Date: ~06/15/18 Code(s): K56.609 - UNSP INTESTNL OBST, UNSP TO PARTIAL VERSUS COMPLETE OBST (4) History of prostate cancer Current Visit: Yes Status: Chronic Onset Date: ~06/15/18 Code(s): Z85.46 - PERSONAL HISTORY OF MALIGNANT NEOPLASM OF PROSTATE (5) Atrial fibrillation Current Visit: No Status: Chronic Qualifiers: Code(s): I48.91 - UNSPECIFIED ATRIAL FIBRILLATION
[2018-06-15] MEDS ORDERED: SODIUM CHLORIDE 0.9% W/ 40 mEq KCL 1000ML 1,000 ML IV SCH (09:30)
--- NOTE | 2018-06-15 09:41 | XRAY ---
Indication: Small bowel obstruction. Comparison: KUB one day earlier. Supine and left lateral decubitus abdomen demonstrates diminished air distended colon again without air-fluid leveling or free air. Solid organs obscured. Stable NG tube tip in stomach, bibasilar pleural effusion/atelectasis, and chronic bony findings.
[2018-06-15] MEDS: PROTONIX 40 MG IV IV SCH (10:19)
[2018-06-15] MEDS: ENOXAPARIN SODIUM SQ SCH (10:19)
--- NOTE | 2018-06-15 12:44 | CONS ---
CONSULT DATE: 06/15/2018 REASON FOR CONSULT: Possible bowel obstruction. HISTORY: The patient is located in room 130 in [facility]. He is not really conversant. He has a nasogastric tube in place. It is fairly clear. It has just a little bit of color. It has not yielded much material. I think it is in place. His abdomen is mildly distended in the upper abdomen. It seems like the air is in his transverse colon clinically. His abdomen is not particularly tender and there are no peritoneal signs. His chart is reviewed. IMPRESSION: This is probably an ileus. We will follow along with you. I would continue NG, IV, activity would be helpful. I suspect this will resolve shortly and his diet will be able to be advanced.
[2018-06-15] MEDS: Cardizem IV 50 MG/10 ML IV SCH (20:32)
[2018-06-15] MEDS ORDERED: ROCEPHIN 1 Gm-D5w 50 ml Bag** 1 G/50 ML IVPB IV SCH (22:00)
[2018-06-16] MEDS: Cardizem IV 50 MG/10 ML IV SCH (07:41)
--- NOTE | 2018-06-16 08:45 | XRAY ---
Indication: Follow-up small bowel obstruction. Comparison: One day earlier. Supine/left lateral decubitus abdomen demonstrates clearing of previous air distended colon with now nonspecific nonobstructed bowel gas pattern. Stable NG tube, bibasilar effusions/atelectasis, and chronic bony findings. No new/acute findings.
[2018-06-16] MEDS: ENOXAPARIN SODIUM SQ SCH (10:29)
[2018-06-16] MEDS: PROTONIX 40 MG IV IV SCH (10:29)
--- NOTE | 2018-06-16 12:37 | PCM.DS ---
Discharge Summary Date of Admission: 06/15/18 02:00 Admitting Physician: GARCÍA BRICE Consults: Consults on Case 06/15/18 00:16 Consult Surgery ROUTINE Primary Care Provider: NO FAMILY DOCTOR Allergies Allergies No Known Drug Allergies Allergy (Verified 06/14/18 19:07) Hospital Summary - Hospital Course Hospital Course: Last Vital Signs Temp 98.1 F 06/16/18 08:00 Pulse 83 06/16/18 08:00 Resp 18 06/16/18 08:00 BP 161/89 06/16/18 08:00 Pulse Ox 98 06/16/18 08:00 Allergies No Known Drug Allergies Allergy (Verified 06/14/18 19:07) Active Medications Albuterol/Ipratropium (Duoneb 0.5-3 Mg/3 Ml Neb) 3 ml IH Q6HPRN PRN PRN Reason: SHORTNESS OF BREATH/WHEEZING Stop: 07/15/18 04:22 Diltiazem HCl (Cardizem Iv 50 Mg/10 Ml) 10 mg IV Q8H [facility] Stop: 07/15/18 20:14 Last Admin: 06/16/18 07:41 Dose: Not Given Enoxaparin Sodium (Enoxaparin Sodium) 30 mg SQ DAILY [facility] Stop: 07/15/18 09:59 Last Admin: 06/16/18 10:29 Dose: 30 mg Ceftriaxone Sodium/Dextrose (Rocephin 1 Gm-D5w 50 Ml Bag) 1 g in 50 mls @ 200 mls/hr IV Q24H22 [facility] Stop: 07/15/18 21:59 Last Admin: 06/15/18 22:08 Dose: 200 mls/hr Ondansetron HCl (Zofran 4 Mg/2 Ml Vial) 4 mg IV Q6H PRN PRN PRN Reason: NAUSEA/VOMITING Stop: 07/15/18 00:15 Pantoprazole Sodium (Protonix 40 Mg Iv) 40 mg IV Q24H10 [facility] Stop: 07/15/18 09:59 Last Admin: 06/16/18 10:29 Dose: 40 mg Intake & Output 06/16/18 06/17/18 11:59 11:59 Intake Total 1197 Output Total 3800 Balance -2603 Weight 77.8 kg Orders 06/15/18 20:15 Diltiazem HCl 50 mg/10 ml [Cardizem IV 50 MG/10 ML] 10 mg IV Q8H 06/16/18 Discharge Routine Discharge/Telephone Order Routine Microbiology 06/15/18 01:37 Urine, Void Urine Culture - Preliminary GRAM NEGATIVE ID AND SENSITIVITY PENDING 06/14/18 19:32 Blood Blood Culture - Preliminary NO GROWTH TO DATE 06/14/18 19:27 Blood Blood Culture - Preliminary NO GROWTH TO DATE - Vitals & Intake/Output Vital Signs: Vital Signs Temperature 98.1 F 06/16/18 08:00 Pulse Rate 83 06/16/18 08:00 Respiratory Rate 18 06/16/18 08:00 Blood Pressure 161/89 06/16/18 08:00 O2 Sat by Pulse Oximetry 98 06/16/18 08:00 Oxygen-Last Documented O2 Percentage 2 Liters = 28% Intake & Output: Intake & Output 06/14/18 06/15/18 06/16/18 06/17/18 11:59 11:59 11:59 11:59 Intake Total 0 1197 Output Total 3800 Balance 0 -2603 Weight 77.8 kg 77.8 kg - Lab Result Diagrams: 06/15/18 04:34 06/15/18 04:34 Micro Results-Entire Visit: Microbiology 06/15/18 01:37 Urine Culture - Preliminary Urine, Void GRAM NEGATIVE ID AND SENSITIVITY PENDING 06/14/18 19:32 Blood Culture - Preliminary Blood NO GROWTH TO DATE 06/14/18 19:27 Blood Culture - Preliminary Blood NO GROWTH TO DATE - Radiology Exams Ordered Rad Exams-Entire Visit: Radiology Procedures Category Date Time Status ABDOMEN 2 VIEW Routine Exams 06/15/18 09:23 Completed ABDOMEN 2 VIEW Routine Exams 06/16/18 08:08 Completed ABDOMEN AND PELVIS W/0 CONTRAS [CT] Stat Exams 06/14/18 21:40 Completed CHEST 2 VIEWS (PA AND LAT) Stat Exams 06/14/18 19:10 Completed CHEST WITHOUT CONTRAST [CT] Stat Exams 06/14/18 21:40 Completed KUB Stat Exams 06/14/18 19:10 Completed KUB Stat Exams 06/14/18 21:58 Completed - Procedures and Test Procedures and Tests throughout Hospitalization: Therapy Orders & Screens 06/15/18 00:16 Oxygen Nasal Cannula 2 lpm Comment: 06/15/18 03:49 OT Screen per Nursing Assess ONCE Comment: Protocol Order Physician Instructions: Greater than 3 points order OT Admission Screening Reason For Exam: Triggered on Admission Diagnosis: pleural effusion/megacolon Open Wound/Cellutlitis/Pressure Ulcers: No Acute Fx/ORIF/Change in wt bearing status: No Severe MUSCULOSKELETAL pain: No ADL Dysfunction: Yes Acute CVA w/Hemiparesis/Hemiplegia: No Decreased Functional Mobility/Strength: Yes Sprain/Strain: No Acute Post-op Mobility Dysfunction: No Total Points: 4 PT Screen per Nursing Assess ONCE Comment: Protocol Order Physician Instructions: Greater than 3 points order PT Admission Screenin Reason For Exam: Triggered on Admission Diagnosis: pleural effusion/megacolon Open Wound/Cellutlitis/Pressure Ulcers: No Acute Fx/ORIF/Change in wt bearing status: No Severe MUSCULOSKELETAL pain: No ADL Dysfunction: Yes Acute CVA w/Hemiparesis/Hemiplegia: No Decreased Functional Mobility/Strength: Yes Sprain/Strain: No Acute Post-op Mobility Dysfunction: No Total Points: 4 ST Screen per Nursing Assess once Comment: Protocol Order Physician Instructions: Greater than [address] Admission Screening Reason For Exam: Triggered on Admission Diagnosis: pleural effusion/megacolon CVA/Dyshpagia/Aphasia: No Cognitive Deficits: No Dehydration/Nutrition Deficit: No Reflux: Yes Oral-Motor Difficulties: No Pneumonia: No Prison Resident: Yes Total Points: 8 06/15/18 04:27 Respiratory Therapy Assessment DAILY Comment: Diagnosis: pleural effusion/megacolon 06/15/18 04:28 Peak Expiratory Flow Rate DAILY Comment: Reason For Exam: Diagnosis: pleural effusion/megacolon Discharge Exam General Appearance: no apparent distress, alert Neurologic Exam: alert, oriented x 3, cooperative, normal mood/affect, nml cerebellar function, sensation nml, No motor deficits Skin Exam: normal color, warm, dry Eye Exam: PERRL, EOMI, eyes nml inspection Ears, Nose, Throat Exam: normal ENT inspection, pharynx normal, moist mucous membranes Neck Exam: normal inspection, non-tender, supple, full range of motion Respiratory Exam: normal breath sounds, lungs clear, No respiratory distress Cardiovascular Exam: regular rate/rhythm, normal heart sounds Gastrointestinal/Abdomen Exam: soft, No tenderness, No mass Extremity Exam: normal inspection, normal range of motion Back Exam: normal inspection, normal range of motion, No CVA tenderness, No vertebral tenderness Male Genitalia Exam: deferred Rectal Exam: deferred Final Diagnosis/Problem List - Final Discharge Diagnosis/Problem (1) Megacolon Current Visit: Yes Status: Resolved Onset Date: ~06/15/18 (2) Pleural effusion Current Visit: Yes Status: Resolved Onset Date: ~06/15/18 (3) SBO (small bowel obstruction) Current Visit: Yes Status: Resolved Onset Date: ~06/15/18 (4) History of prostate cancer Current Visit: Yes Status: Chronic Onset Date: ~06/15/18 (5) Atrial fibrillation Current Visit: Yes Status: Chronic - Discharge Discharge Date: 06/16/18 Disposition: XFER OTHER Condition: Stable Prescriptions: No Action Mag Hydrox/Al Hydrox/Simeth [Mylanta Maximum Strength Liq] 15 ml PO Q4HPRN PRN PRN Reason: Indigestion Polyethylene Glycol 3350 17 gm [Miralax Powder 17GM PACKET] 17 gm PO DAILY Losartan Potassium [Cozaar] 25 mg PO DAILY Warfarin Sodium 3 mg [Coumadin 3 MG] 3 mg PO UD Docusate Sodium 100 mg [Colace 100 MG] 100 mg PO BID Ascorbic Acid [C-500] 500 mg PO DAILY Alendronate Sodium 70 mg [Fosamax 70 MG] 70 mg PO Q7D Simethicone 160 mg PO Q4H PRN PRN Reason: Gas Sennosides/Docusate Sodium [Senna-S Tablet] 2 tab PO DAILY Mirtazapine [Remeron] 15 mg PO DAILY Omeprazole 20 mg PO DAILY Gabapentin [Neurontin] 300 mg PO DAILY Magnesium Hydroxide 30 ml [Milk of Magnesia 30 ml] 30 ml PO DAILY PRN PRN Reason: Constipation Ferrous Sulfate 325 mg [Feosol 325 mg] 1 tab PO BID Warfarin Sodium 2 mg [Coumadin 2 MG] 4 mg PO UD Diltiazem HCl 240 mg [Cardizem CD 240 MG] 1 cap PO DAILY Bisacodyl 5 mg [Dulcolax 5 mg] 2 tab PO DAILY PRN PRN Reason: Constipation Dextran 70/Hypromellose/Pf [Artificial Tears Drops] 1 drop BID Ipratropium/Albuterol Sulfate [Combivent Respimat 20-100 Mcg] 1 puff IH Q6H PRN PRN Reason: Shortness Of Breath Ipratropium/Albuterol Sulfate [Iprat-Albut 0.5-3(2.5) mg/3 ml] 1 vial IH Q6H PRN PRN Reason: Shortness Of Breath Follow up with: DOCTOR,NO FAMILY [Primary Care Provider] - 1 Week
[2018-06-16 12:55] VITALS: BP 141/77; PULSE 74; O2SAT 96
[2018-06-16] MEDS ORDERED: Cardizem CD 240 MG PO ONE (14:00)
== END 2018-06-16 14:20 | DRG 394 ==
LOC: ED 18:55 → MED SURG 06-15 02:00
PROVIDERS: ADMIT General Practice; ATTEND General Practice
DX: K59.39 Other megacolon (principal); J90 Pleural effusion, not elsewhere classified; K56.609 Unspecified intestinal obstruction, unspecified as to partial versus complete obstruction; I10 Essential (primary) hypertension; I48.91 Unspecified atrial fibrillation; Z79.01 Long term (current) use of anticoagulants; Z85.46 Personal history of malignant neoplasm of prostate; Z79.899 Other long term (current) drug therapy
CPT/HCPCS: 36000; 36415; 71046; 71250; 74018; 74021; 74176; 80053; 81001; 83605; 83690; 84134; 84484; 85025; 85610; 87040; 87077; 87086; 87186; 93005; 94760; 99285; J0696; J1650; A9270-GY

== ENCOUNTER 2018-09-22 06:56 | Inpatient (IN) | payer MEDICARE, BC ==
[2018-09-22] MEDS ORDERED: Sodium Chloride 0.9% 1000 ML 1,000 ML ONE (07:03)
[2018-09-22] MEDS: Sodium Chloride 0.9% 1000 ML 1,000 ML IV SCH ×3 (07:10→20:02)
[2018-09-22] MEDS ORDERED: Sodium Chloride 0.9% 1000 ML 1,000 ML IV STA ×3 (07:10→08:22)
[2018-09-22 07:30] LABS: Hematocrit 37.5 % (42-50); Hemoglobin 12.2 gm/dl (12.5-18.0); Mean Cell Volume 92.6 fl (78-100); Mean Corpuscular Hemoglobin 30.1 pg (26-32); Mean Corpuscular Hgb Concent. 32.5 g/dl (32-36); Mean Platelet Volume 9.1 fl (6-9.5); Platelet Count 217 K/mm3 (150-450); Red Blood Count 4.05 M/mm3 (4.1-5.6); Red Cell Distribution Width 15.4 % (11.5-14.0)
[2018-09-22 07:32] LABS: White Blood Count 41.6 K/mm3 (4.0-10.5)
[2018-09-22] MEDS ORDERED: DUONEB 0.5-3 MG/3 ml Neb IH ONE ×2 (07:35→07:40)
[2018-09-22] MEDS ORDERED: Levofloxacin 500MG/100ML D5W 500 MG/100 ML BAG IV STA (07:35)
[2018-09-22 07:40] LABS: INR 4.6 (0.8-3.0); PROTIME 54.3 SECONDS (8.83-12.87)
[2018-09-22] MEDS ORDERED: Levofloxacin 500MG/100ML D5W 500 MG/100 ML BAG IV ONE (07:41)
[2018-09-22 07:43] LABS: Appearance TURBID (CLEAR); Glucose NEGATIVE (NEGATIVE); Leukocyte Esterase 2+ (NEGATIVE); Nitrite NEGATIVE (NEGATIVE); Protein,Urine Dip 300 (Negative)
[2018-09-22 07:43] LABS: BAND 30 % (0.0-2.0); Lymphocytes 1 % (24-44); Metamyelocyte 3 %; Monocyte 4 % (0.0-12.0); Neutrophils 62 % (36.-66.); Total Cells Counted 100
[2018-09-22 07:44] LABS: Bilirubin NEGATIVE (NEGATIVE); Blood 250 Ery/ul (0-5); Ketones NEGATIVE (NEGATIVE); Urobilinogen NORMAL mg/dL (0-1)
[2018-09-22 07:44] LABS: ANISOCYTOSIS 1+; Ovalocytes 1+; Platelet Estimate NORMAL (NORMAL); Poikilocytosis 1+
--- NOTE | 2018-09-22 07:45 | ERPHSYRPT ---
- History of Present Illness Time Seen by Provider: 09/22/18 07:05 Source: patient, EMS, [facility] records Exam Limitations: clinical condition Patient Subjective Stated Complaint: per sd staff, pt has been lethargic and has altered mental status. temp at sd was 102 with decreased o2 sat. difficulty with vila cath draining Triage Nursing Assessment: pt awake, responsive to voice. answers some questions. speech slurred. respirations nonlabored. occasional moist cough noted. o2 on at 2l per nc per ems. vila cath to gravity with cloudy urinept pale, skin dry. 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 Timing/Duration: day(s) Activities at Onset: none Severity of Dyspnea-Max: moderate Severity of Dyspnea-Current: moderate Possible Cause: occasional episodes Modifying Factors: Improves With: coughing, deep breath Associated Symptoms: cough, productive cough International travel in last 2 weeks: No Allergies/Adverse Reactions: No Known Drug Allergies Allergy (Verified 09/22/18 07:24) Home Medications: Alendronate Sodium 70 mg [Fosamax 70 MG] 70 mg PO Q7D 04/21/16 [History] Ascorbic Acid [C-500] 500 mg PO DAILY 04/21/16 [History] Docusate Sodium 100 mg [Colace 100 MG] 100 mg PO BID 04/21/16 [History] Losartan Potassium [Cozaar] 25 mg PO DAILY 04/21/16 [History] Mag Hydrox/Al Hydrox/Simeth [Mylanta Maximum Strength Liq] 15 ml PO Q4HPRN PRN 04/21/16 [History] Polyethylene Glycol 3350 17 gm [Miralax Powder 17GM PACKET] 17 gm PO DAILY [History] Warfarin Sodium 3 mg [Coumadin 3 MG] 3 mg PO UD 04/21/16 [History] Bisacodyl 5 mg [Dulcolax 5 mg] 2 tab PO DAILY PRN 06/15/18 [History] Dextran 70/Hypromellose/Pf [Artificial Tears Drops] 1 drop BID 06/15/18 [History ] Diltiazem HCl 240 mg [Cardizem CD 240 MG] 1 cap PO DAILY 06/15/18 [History ] Ferrous Sulfate 325 mg [Feosol 325 mg] 1 tab PO BID 06/15/18 [History] Gabapentin [Neurontin] 300 mg PO DAILY 06/15/18 [History] Ipratropium/Albuterol Sulfate [Combivent Respimat 20-100 Mcg] 1 puff IH Q6H PRN 06/15/18 [History] Ipratropium/Albuterol Sulfate [Iprat-Albut 0.5-3(2.5) mg/3 ml] 1 vial IH Q6H PRN 06/15/18 [History] Magnesium Hydroxide 30 ml [Milk of Magnesia 30 ml] 30 ml PO DAILY PRN [History] Mirtazapine [Remeron] 15 mg PO DAILY 06/15/18 [History] Omeprazole 20 mg PO DAILY 06/15/18 [History] Sennosides/Docusate Sodium [Senna-S Tablet] 2 tab PO DAILY 06/15/18 [History] Simethicone 160 mg PO Q4H PRN 06/15/18 [History] Warfarin Sodium 2 mg [Coumadin 2 MG] 4 mg PO UD 06/15/18 [History] Hx Tetanus, Diphtheria Vaccination/Date Given: Yes Hx Influenza Vaccination/Date Given: Yes Hx Pneumococcal Vaccination/Date Given: Yes Immunizations Up to Date: Yes - Review of Systems Constitutional: No Fever, No Chills Eyes: No Symptoms Ears, Nose, & Throat: No Symptoms Respiratory: Cough, Dyspnea Cardiac: No Chest Pain, No Edema, No Syncope Abdominal/Gastrointestinal: No Symptoms, No Abdominal Pain, No Nausea, No Vomiting, No Diarrhea Genitourinary Symptoms: No Symptoms, No Dysuria Musculoskeletal: No Symptoms, No Back Pain, No Neck Pain Skin: No Symptoms, No Rash Neurological: No Dizziness, No Focal Weakness, No Sensory Changes Psychological: No Symptoms Endocrine: No Symptoms All Other Systems: Reviewed and Negative - Past Medical History Pertinent Past Medical History: Yes Neurological History: No Pertinent History ENT History: Cataracts Cardiac History: Arrhythmia, Hypertension Respiratory History: No Pertinent History Endocrine Medical History: No Pertinent History Musculoskeletal History: Arthritis, Fractures, Osteoporosis GI Medical History: GERD, Other History: Other Psycho-Social History: Depression Male Reproductive Disorders: Prostate Cancer, Prostate Problems Other Medical History: PROSTATE CA. MULTIPLE HEALING FRACTURES. MEGACOLON. AFIB - Past Surgical History Past Surgical History: Yes Neuro Surgical History: No Pertinent History Cardiac: No Pertinent History Respiratory: No Pertinent History Gastrointestinal: No Pertinent History Genitourinary: No Pertinent History Musculoskeletal: Orthopedic Surgery Male Surgical History: Prostate Surgery Other Surgical History: hand surgery - Social History Smoking Status: Unknown if ever smoked Exposure to second hand smoke: No Drug Use: none Patient Lives Alone: No (at [facility]) Significant Family History: other (lung cancer father) - Nursing Vital Signs Nursing Vital Signs: Initial Vital Signs Temperature 100.2 F 09/22/18 06:57 Pulse Rate 87 09/22/18 06:57 Respiratory Rate 24 09/22/18 06:57 Blood Pressure 61/30 09/22/18 06:57 O2 Sat by Pulse Oximetry 100 09/22/18 06:57 Pain Scale Pain Intensity 0 - Physical Exam General Appearance: mild distress, lethargy Eye Exam: PERRL/EOMI Ears, Nose, Throat Exam: hearing grossly normal Neck Exam: normal inspection Respiratory Exam: diminished breath sounds Cardiovascular/Chest Exam: irregular, decreased pulses Abdominal/Gastrointestinal Exam: soft, normal bowel sounds Peripheral Pulses Exam: carotid (R): 2+, carotid (L): 2+, femoral (R): 2+, femoral (L): 2+, dorsalis-pedis (R): 2+, dorsalis-pedis (L): 2+ Neurologic Exam: other (RESPONSIVE TO NAME ONLY) SpO2 Interpretation: normal SpO2: 98 O2 Delivery: Nasal Cannula - Course Nursing assessment & vital signs reviewed: Yes EKG Interpreted by Me: RATE, A-fib, Left [place] Deviation (RATE 104) - Radiology Exams Chest X-ray Interpretation: Discussed w/ radiologist (LARGE RIGHT PLEURAL [id number] AND TINY LEFT EFFUSION WITH COMPRESSIVE ATELECTASIS) - CT Exams Head CT Interpretation: Discussed w/radiologist (TINY PARASELLAR PNEUMOCEPHALUS AND DIFFUSE FACIAL SOFT TISSUE EMPHYSEMA INCLUDING RETRO-ORBITAL LEFT GLOBE, TINY FRACTURES INFOLVING THE FLOOR OR THE LEFT MIDDLE FOSSA AND LEFT PTERYGOID FROCESS. NONDISPLACED BILATERAL MANDIBLE CONDYLE FRACTURES, NO ACUTE INTRACRANIAL HEMORRHAGE) Ordered Tests: Active Orders 24 hr Category Date Time Status Bedrest ROUTINE Activity 09/22/18 09:46 Active Accucheck ACHS Care 09/22/18 09:42 Active Call Admit Doctor for Orders ROUTINE Care 09/22/18 09:42 Active Group Practice Pediatrician STAT Care 09/22/18 07:00 Active Catheter-[place] ROUTINE Care 09/22/18 09:44 Active Code Status Order ROUTINE Care 09/22/18 09:42 Active EKG-ER Only STAT Care 09/22/18 06:58 Active IV Care Q6H Care 09/22/18 09:42 Active IV Insertion STAT Care 09/22/18 06:58 Active Neuro Checks Q4H Care 09/22/18 09:42 Active Oxygen-ED Only Nasal Cannula 2 lpm Care 09/22/18 07:[address] in Observation ROUTINE Care 09/22/18 09:42 Active Pulse Oximetry (ED) STAT Care 09/22/18 06:58 Active Vital Signs Q4H Care 09/22/18 09:42 Active NPO Diet 09/22/18 09:46 Active CHEST 1 VIEW (PORTABLE) Stat Exams 09/22/18 06:59 Completed HEAD WITHOUT CONTRAST [CT] Stat Exams 09/22/18 06:59 Completed AMYLASE Stat Lab 09/22/18 07:15 Completed ARTERIAL BLOOD GASES Stat Lab 09/22/18 08:10 Completed BLOOD CULTURE Stat Lab 09/22/18 07:20 Received CBC W DIFF Stat Lab 09/22/18 07:15 Results CMP Stat Lab 09/22/18 07:15 Completed CULTURE,URINE Stat Lab 09/22/18 07:32 Ordered D-DIMER QUANTITATION Stat Lab 09/22/18 07:15 Completed LIPASE Stat Lab 09/22/18 07:15 Completed Lactic Acid Stat Lab 09/22/18 07:20 Completed Lactic Acid Stat Lab 09/22/18 08:24 Results MAGNESIUM Stat Lab 09/22/18 07:15 Completed Manual Differential NC Stat Lab 09/22/18 07:15 Results NT PRO BNP Stat Lab 09/22/18 07:15 Completed PROTIME WITH INR Stat Lab 09/22/18 07:15 Completed Pathologist Review Stat Lab 09/22/18 07:15 Results TROPONIN Q3H Lab 09/22/18 07:15 Completed TROPONIN Q3H Lab 09/22/18 10:15 Ordered TROPONIN Q3H Lab 09/22/18 13:15 Ordered TROPONIN Q3H Lab 09/22/18 16:15 Ordered TROPONIN Q3H Lab 09/22/18 19:15 Ordered UA W/RFX UR CULTURE Stat Lab 09/22/18 07:32 Completed Urine Triage Profile Stat Lab 09/22/18 07:32 Completed Oxygen Nasal Cannula 2 lpm RT 09/22/18 09:42 Active Peak Expiratory Flow Rate ONCE RT 09/22/18 08:16 Active Respiratory Nebulizer STAT RT 09/22/18 07:36 Completed Respiratory Therapy Assessment DAILY RT 09/22/18 08:16 Active Respiratory Therapy Consult ROUTINE RT 09/22/18 09:42 Active Transfer Order Routine Transfer 09/22/18 Ordered Medication Summary Generic Name Dose Route Start Last Admin Trade Name Freq PRN Reason Stop Dose Admin Acetaminophen 650 mg 09/22/18 09:48 Feverall 650 Mg ND 10/22/18 09:47 Q4HPRN PRN FEVER Albuterol/Ipratropium 3 ml 09/22/18 11:00 Duoneb 0.5-3 Mg/3 Ml Neb IH 10/22/18 10:59 Q4HRT GABRIELLA Sodium Chloride 1,000 mls @ 100 mls/hr 09/22/18 07:00 09/22/18 07:10 Sodium Chloride 0.9% 1000 Ml IV 10/22/18 06:59 100 mls/hr .Q10H GABRIELLA Administration Potassium Chloride 20 meq in 100 mls @ 50 mls/hr 09/22/18 09:40 09/22/18 09: 48 Potassium Chloride 20 Meq In Water 100ml IV 09/22/18 11:39 50 mls/hr STAT ONE Administration Levofloxacin/Dextrose 500 mg in 100 mls @ 100 mls/hr 09/22/18 10:00 Levofloxacin 500mg/100ml D5w IV 10/22/18 09:59 Q24H10 GABRIELLA Discontinued Medications Generic Name Dose Route Start Last Admin Trade Name Freq PRN Reason Stop Dose Admin Albuterol/Ipratropium 3 ml 09/22/18 07:35 09/22/18 08:07 Duoneb 0.5-3 Mg/3 Ml Neb IH 09/22/18 07:36 3 ml STAT ONE Administration Albuterol/Ipratropium Confirm 09/22/18 07:40 Duoneb 0.5-3 Mg/3 Ml Neb Administered 09/22/18 07:41 Dose 3 ml IH .STK-MED ONE Digoxin 0.5 mg 09/22/18 07:56 09/22/18 08:29 Lanoxin 0.5 Mg/2 Ml Injection IV 09/22/18 07:57 0.5 mg STAT ONE Administration Digoxin Confirm 09/22/18 08:23 Lanoxin 0.5 Mg/2 Ml Injection Administered 09/22/18 08:24 Dose 0.5 mg .ROUTE .STK-MED ONE Sodium Chloride 1,000 mls @ 999 mls/hr 09/22/18 07:10 09/22/18 09:50 Sodium Chloride 0.9% 1000 Ml IV 09/22/18 08:10 Infused .Q1H1M STA Infusion Levofloxacin/Dextrose 500 mg in 100 mls @ 100 mls/hr 09/22/18 07:35 09/22/18 09:49 Levofloxacin 500mg/100ml D5w IV 09/22/18 08:34 Infused STAT STA Infusion Levofloxacin/Dextrose Confirm 09/22/18 07:41 Levofloxacin 500mg/100ml D5w Administered 09/22/18 07:42 Dose 500 mg in 100 mls @ ud IV .STK-MED ONE Sodium Chloride 1,000 mls @ 999 mls/hr 09/22/18 08:21 09/22/18 09:50 Sodium Chloride 0.9% 1000 Ml IV 09/22/18 09:21 Infused .Q1H1M STA Infusion Sodium Chloride 1,000 mls @ 999 mls/hr 09/22/18 08:22 09/22/18 09:49 Sodium Chloride 0.9% 1000 Ml IV 09/22/18 09:22 Infused .Q1H1M STA Infusion Potassium Chloride Confirm 09/22/18 09:46 Potassium Chloride 20 Meq In Water 100ml Administered 09/22/18 09:47 Dose 100 mls @ ud IV .STK-MED ONE Phytonadione 10 mg 09/22/18 07:57 09/22/18 08:28 Vitamin K 10 Mg/Ml IM 09/22/18 07:58 10 mg STAT ONE Administration Phytonadione Confirm 09/22/18 08:23 Vitamin K 10 Mg/Ml Administered 09/22/18 08:24 Dose 10 mg .ROUTE .STK-MED ONE Lab/Rad Data: Laboratory Result Diagrams 09/22/18 07:15 09/22/18 07:15 Laboratory Results 09/22/18 09/22/18 09/22/18 Range/Units 08:24 08:10 07:55 WBC (4.0-10.5) K/mm3 RBC (4.1-5.6) M/mm3 Hgb (12.5-18.0) gm/dl Hct (42-50) % MCV (78-100) fl MCH (26-32) pg MCHC (32-36) g/dl RDW (11.5-14.0) % Plt Count (150-450) K/mm3 MPV (6-9.5) fl Absolute Granulocytes (1.4-6.9) Segmented Neutrophils (36.-66.) % Band Neutrophils (0.0-2.0) % Lymphocytes (Manual) (24-44) % Monocytes (Manual) (0.0-12.0) % Metamyelocytes % Platelet Estimate (NORMAL) RBC Morphology Poikilocytosis Anisocytosis Ovalocytes Smear Path Review PT (8.83-12.87) SECONDS INR (0.8-3.0) D-Dimer (215-500) ng/mL Puncture Site LEFT RADIAL pCO2 40 (35-45) mmHg pO2 72 L (75-100) mmHg Base Excess -2.7 L (-2.0-2.0) O2 Saturation 93.7 L (94-100) g/dF ABG pH 7.36 (7.35-7.45) ABG HCO3 22.6 (22-28) ABG O2 Sat (Measured) 97.1 (95-100) % John Test YES A-a Gradient 78 a/A Ratio 0.48 Hemoglobin 11.7 Carboxyhemoglobin 2.4 (0.0-6.9) % THgb Methemoglobin 1.1 L (1.4-1.5) % Temperature 37.0 C POC O2 Flow Rate 28 % Sodium (137-145) mmol/L Potassium 2.7 L* (3.5-5.1) mmol/L Chloride (98-107) mmol/L Carbon Dioxide (22-30) mmol/L Anion Gap (5-15) MEQ/L BUN (9-20) mg/dL Creatinine (0.66-1.25) mg/dL Estimated GFR ML/MIN Glucose (74-106) mg/dL Lactic Acid 2.1 H (0.4-2.0) Calcium (8.4-10.2) mg/dL Magnesium (1.6-2.3) mg/dL Total Bilirubin (0.2-1.3) mg/dL AST (17-59) U/L ALT (0-50) U/L Alkaline Phosphatase (38-126) U/L Troponin I (0.000-0.034) ng/mL NT-Pro-B Natriuret Pep (0-1800) pg/mL Serum Total Protein (6.3-8.2) g/dL Albumin (3.5-5.0) g/dL Amylase (30-110) U/L Lipase (23-300) U/L Urine Color (YELLOW) Urine Appearance (CLEAR) Urine pH (5-6) Ur Specific [place] (1.005-1.025) Urine Protein (Negative) Urine Ketones (NEGATIVE) Urine Blood (0-5) Pee/ul Urine Nitrite (NEGATIVE) Urine Bilirubin (NEGATIVE) Urine Urobilinogen (0-1) mg/dL Ur Leukocyte Esterase (NEGATIVE) Urine WBC (Auto) (0-5) /HPF Urine RBC (Auto) (0-2) /HPF U Epithel Cells (Auto) (FEW) /HPF Urine Bacteria (Auto) (NEGATIVE) /HPF Urine Culture Reflexed (NO) Urine Glucose (NEGATIVE) mg/dL Digoxin (0.8-1.9) ng/mL Urine Opiates Level (NEGATIVE) Ur Methadone (NEGATIVE) Urine Barbiturates (NEGATIVE) Ur Phencyclidine (PCP) (NEGATIVE) Urine Amphetamine (NEGATIVE) U Benzodiazepine Level (NEGATIVE) Urine Cocaine (NEGATIVE) Urine Marijuana (THC) (NEGATIVE) Influenza Type A Ag NEGATIVE (NEGATIVE) Influenza Type B Ag NEGATIVE (NEGATIVE) RSV (PCR) NEGATIVE (Negative) 09/22/18 09/22/18 09/22/18 Range/Units 07:32 07:32 07:20 WBC (4.0-10.5) K/mm3 RBC (4.1-5.6) M/mm3 Hgb (12.5-18.0) gm/dl Hct (42-50) % MCV (78-100) fl MCH (26-32) pg MCHC (32-36) g/dl RDW (11.5-14.0) % Plt Count (150-450) K/mm3 MPV (6-9.5) fl Absolute Granulocytes (1.4-6.9) Segmented Neutrophils (36.-66.) % Band Neutrophils (0.0-2.0) % Lymphocytes (Manual) (24-44) % Monocytes (Manual) (0.0-12.0) % Metamyelocytes % Platelet Estimate (NORMAL) RBC Morphology Poikilocytosis Anisocytosis Ovalocytes Smear Path Review PT (8.83-12.87) SECONDS INR (0.8-3.0) D-Dimer (215-500) ng/mL Puncture Site pCO2 (35-45) mmHg pO2 (75-100) mmHg Base Excess (-2.0-2.0) O2 Saturation (94-100) g/dF ABG pH (7.35-7.45) ABG HCO3 (22-28) ABG O2 Sat (Measured) (95-100) % John Test A-a Gradient a/A Ratio Hemoglobin Carboxyhemoglobin (0.0-6.9) % THgb Methemoglobin (1.4-1.5) % Temperature C POC O2 Flow Rate % Sodium (137-145) mmol/L Potassium (3.5-5.1) mmol/L Chloride (98-107) mmol/L Carbon Dioxide (22-30) mmol/L Anion Gap (5-15) MEQ/L BUN (9-20) mg/dL Creatinine (0.66-1.25) mg/dL Estimated GFR ML/MIN Glucose (74-106) mg/dL Lactic Acid 4.0 H (0.4-2.0) Calcium (8.4-10.2) mg/dL Magnesium (1.6-2.3) mg/dL Total Bilirubin (0.2-1.3) mg/dL AST (17-59) U/L ALT (0-50) U/L Alkaline Phosphatase (38-126) U/L Troponin I (0.000-0.034) ng/mL NT-Pro-B Natriuret Pep (0-1800) pg/mL Serum Total Protein (6.3-8.2) g/dL Albumin (3.5-5.0) g/dL Amylase (30-110) U/L Lipase (23-300) U/L Urine Color YELLOW (YELLOW) Urine Appearance TURBID (CLEAR) Urine pH 8.0 (5-6) Ur Specific [place] 1.010 (1.005-1.025) Urine Protein 300 (Negative) Urine Ketones NEGATIVE (NEGATIVE) Urine Blood 250 (0-5) Pee/ul Urine Nitrite NEGATIVE (NEGATIVE) Urine Bilirubin NEGATIVE (NEGATIVE) Urine Urobilinogen NORMAL (0-1) mg/dL Ur Leukocyte Esterase 2+ (NEGATIVE) Urine WBC (Auto) >100 (0-5) /HPF Urine RBC (Auto) >101 (0-2) /HPF U Epithel Cells (Auto) OCCASIONAL (FEW) /HPF Urine Bacteria (Auto) MANY (NEGATIVE) /HPF Urine Culture Reflexed ORDERED SEPARATELY (NO) Urine Glucose NEGATIVE (NEGATIVE) mg/dL Digoxin (0.8-1.9) ng/mL Urine Opiates Level NEGATIVE (NEGATIVE) Ur Methadone NEGATIVE (NEGATIVE) Urine Barbiturates NEGATIVE (NEGATIVE) Ur Phencyclidine (PCP) NEGATIVE (NEGATIVE) Urine Amphetamine NEGATIVE (NEGATIVE) U Benzodiazepine Level NEGATIVE (NEGATIVE) Urine Cocaine NEGATIVE (NEGATIVE) Urine Marijuana (THC) NEGATIVE (NEGATIVE) Influenza Type A Ag (NEGATIVE) Influenza Type B Ag (NEGATIVE) RSV (PCR) (Negative) 09/22/18 09/22/18 09/22/18 Range/Units 07:15 07:15 07:15 WBC (4.0-10.5) K/mm3 RBC (4.1-5.6) M/mm3 Hgb (12.5-18.0) gm/dl Hct (42-50) % MCV (78-100) fl MCH (26-32) pg MCHC (32-36) g/dl RDW (11.5-14.0) % Plt Count (150-450) K/mm3 MPV (6-9.5) fl Absolute Granulocytes (1.4-6.9) Segmented Neutrophils (36.-66.) % Band Neutrophils (0.0-2.0) % Lymphocytes (Manual) (24-44) % Monocytes (Manual) (0.0-12.0) % Metamyelocytes % Platelet Estimate (NORMAL) RBC Morphology Poikilocytosis Anisocytosis Ovalocytes Smear Path Review PT (8.83-12.87) SECONDS INR (0.8-3.0) D-Dimer (215-500) ng/mL Puncture Site pCO2 (35-45) mmHg pO2 (75-100) mmHg Base Excess (-2.0-2.0) O2 Saturation (94-100) g/dF ABG pH (7.35-7.45) ABG HCO3 (22-28) ABG O2 Sat (Measured) (95-100) % John Test A-a Gradient a/A Ratio Hemoglobin Carboxyhemoglobin (0.0-6.9) % THgb Methemoglobin (1.4-1.5) % Temperature C POC O2 Flow Rate % Sodium (137-145) mmol/L Potassium (3.5-5.1) mmol/L Chloride (98-107) mmol/L Carbon Dioxide (22-30) mmol/L Anion Gap (5-15) MEQ/L BUN (9-20) mg/dL Creatinine (0.66-1.25) mg/dL Estimated GFR ML/MIN Glucose (74-106) mg/dL Lactic Acid (0.4-2.0) Calcium (8.4-10.2) mg/dL Magnesium 1.8 (1.6-2.3) mg/dL Total Bilirubin (0.2-1.3) mg/dL AST (17-59) U/L ALT (0-50) U/L Alkaline Phosphatase (38-126) U/L Troponin I 0.095 H* (0.000-0.034) ng/mL NT-Pro-B Natriuret Pep (0-1800) pg/mL Serum Total Protein (6.3-8.2) g/dL Albumin (3.5-5.0) g/dL Amylase (30-110) U/L Lipase (23-300) U/L Urine Color (YELLOW) Urine Appearance (CLEAR) Urine pH (5-6) Ur Specific [place] (1.005-1.025) Urine Protein (Negative) Urine Ketones (NEGATIVE) Urine Blood (0-5) Pee/ul Urine Nitrite (NEGATIVE) Urine Bilirubin (NEGATIVE) Urine Urobilinogen (0-1) mg/dL Ur Leukocyte Esterase (NEGATIVE) Urine WBC (Auto) (0-5) /HPF Urine RBC (Auto) (0-2) /HPF U Epithel Cells (Auto) (FEW) /HPF Urine Bacteria (Auto) (NEGATIVE) /HPF Urine Culture Reflexed (NO) Urine Glucose (NEGATIVE) mg/dL Digoxin < 0.4 L (0.8-1.9) ng/mL Urine Opiates Level (NEGATIVE) Ur Methadone (NEGATIVE) Urine Barbiturates (NEGATIVE) Ur Phencyclidine (PCP) (NEGATIVE) Urine Amphetamine (NEGATIVE) U Benzodiazepine Level (NEGATIVE) Urine Cocaine (NEGATIVE) Urine Marijuana (THC) (NEGATIVE) Influenza Type A Ag (NEGATIVE) Influenza Type B Ag (NEGATIVE) RSV (PCR) (Negative) 09/22/18 09/22/18 09/22/18 Range/Units 07:15 07:15 07:15 WBC 41.6 H* (4.0-10.5) K/mm3 RBC 4.05 L (4.1-5.6) M/mm3 Hgb 12.2 L (12.5-18.0) gm/dl Hct 37.5 L (42-50) % MCV 92.6 (78-100) fl MCH 30.1 (26-32) pg MCHC 32.5 (32-36) g/dl RDW 15.4 H (11.5-14.0) % Plt Count 217 (150-450) K/mm3 MPV 9.1 (6-9.5) fl Absolute Granulocytes 38.3 H (1.4-6.9) Segmented Neutrophils 62 (36.-66.) % Band Neutrophils 30 H (0.0-2.0) % Lymphocytes (Manual) 1 L (24-44) % Monocytes (Manual) 4 (0.0-12.0) % Metamyelocytes 3 % Platelet Estimate NORMAL (NORMAL) RBC Morphology ABNORMAL Poikilocytosis 1+ Anisocytosis 1+ Ovalocytes 1+ Smear Path Review Pending PT 54.3 H (8.83-12.87) SECONDS INR 4.60 H (0.8-3.0) D-Dimer 4236 H* (215-500) ng/mL Puncture Site pCO2 (35-45) mmHg pO2 (75-100) mmHg Base Excess (-2.0-2.0) O2 Saturation (94-100) g/dF ABG pH (7.35-7.45) ABG HCO3 (22-28) ABG O2 Sat (Measured) (95-100) % John Test A-a Gradient a/A Ratio Hemoglobin Carboxyhemoglobin (0.0-6.9) % THgb Methemoglobin (1.4-1.5) % Temperature C POC O2 Flow Rate % Sodium 137 (137-145) mmol/L Potassium 3.1 L (3.5-5.1) mmol/L Chloride 102 (98-107) mmol/L Carbon Dioxide 26 (22-30) mmol/L Anion Gap 12.7 (5-15) MEQ/L BUN 23 H (9-20) mg/dL Creatinine 1.91 H (0.66-1.25) mg/dL Estimated GFR 35.4 ML/MIN Glucose 93 (74-106) mg/dL Lactic Acid (0.4-2.0) Calcium 8.0 L (8.4-10.2) mg/dL Magnesium (1.6-2.3) mg/dL Total Bilirubin 0.60 (0.2-1.3) mg/dL AST 30 (17-59) U/L ALT 16 (0-50) U/L Alkaline Phosphatase 114 (38-126) U/L Troponin I (0.000-0.034) ng/mL NT-Pro-B Natriuret Pep 36574 H (0-1800) pg/mL Serum Total Protein 5.1 L (6.3-8.2) g/dL Albumin 2.3 L (3.5-5.0) g/dL Amylase < 30 L (30-110) U/L Lipase < 10 L (23-300) U/L Urine Color (YELLOW) Urine Appearance (CLEAR) Urine pH (5-6) Ur Specific [place] (1.005-1.025) Urine Protein (Negative) Urine Ketones (NEGATIVE) Urine Blood (0-5) Pee/ul Urine Nitrite (NEGATIVE) Urine Bilirubin (NEGATIVE) Urine Urobilinogen (0-1) mg/dL Ur Leukocyte Esterase (NEGATIVE) Urine WBC (Auto) (0-5) /HPF Urine RBC (Auto) (0-2) /HPF U Epithel Cells (Auto) (FEW) /HPF Urine Bacteria (Auto) (NEGATIVE) /HPF Urine Culture Reflexed (NO) Urine Glucose (NEGATIVE) mg/dL Digoxin (0.8-1.9) ng/mL Urine Opiates Level (NEGATIVE) Ur Methadone (NEGATIVE) Urine Barbiturates (NEGATIVE) Ur Phencyclidine (PCP) (NEGATIVE) Urine Amphetamine (NEGATIVE) U Benzodiazepine Level (NEGATIVE) Urine Cocaine (NEGATIVE) Urine Marijuana (THC) (NEGATIVE) Influenza Type A Ag (NEGATIVE) Influenza Type B Ag (NEGATIVE) RSV (PCR) (Negative) - Progress Progress Note: 09/22/18 07:42 PLACED PATIENT ON SEPSIS PROTOCOL, BOLUS IN NORMAL SALINE 2 LITERS/HR X 2 WITH A LACTIC ACID-4 09/22/18 07:48, AFTER 2 SETS OF BLOOD CULTURE ADMINISTERED LEVAQUIN 500MG IVPB 09/22/18 07:52 LABS REVIEWED CBC WITH WBC-41,600 UA- WBC>100,000, RBC>100,000, BACTERIA-MANY 09/22/18 08:22 CONSULTED WITH PATIENT'S FAMILY REGARDING HIS DNR STATUS, STATES PATIENT FELL IN BATHROOM 3 WEEKS AGO 09/22/18 09:26 VITAL SIGNS IMPROVED BP 106/64 09/22/18 09:30 Blood Culture(s) Obtained: Yes Antibiotics given: Yes Discussed with Dr.: Brice (DISCUSSED WITH DR BRICE AT 0940 FOR OBSERVATION) - Departure Departure Disposition: Observation Clinical Impression: PNEUMONIA, DEHYDRATION, URINARY TRACT INFECTION, TINY FRACTURES LEFT MIDDLE FOSSA/PTERYGOID Condition: Fair Critical Care Time: Yes Critical Care Time(excluding separately billable procedures): ___ minutes (40) Referrals: DOCTOR,NO FAMILY [Primary Care Provider] -
[2018-09-22 07:48] LABS: Bacteria MANY /HPF (NEGATIVE); Epithelial Cells OCCASIONAL /HPF (FEW); RBC >101 /HPF (0-2); WBC >100 /HPF (0-5)
[2018-09-22 07:55] LABS: ALBUMIN 2.3 g/dL (3.5-5.0); ALKALINE PHOSPHATASE 114 U/L (38-126); AMYLASE < 30 U/L (30-110); ANION GAP 12.7 MEQ/L (5-15); BLOOD UREA NITROGEN 23 mg/dL (9-20); CHLORIDE 102 mmol/L (98-107); Carbon Dioxide 26 mmol/L (22-30); Creatinine 1 1.91 mg/dL (0.66-1.25); Glucose 93 mg/dL (74-106); NT PRO BNP 18200 pg/mL (0-1800); Potassium 3.1 mmol/L (3.5-5.1); SGOT/AST 30 U/L (17-59); SGPT/ALT 16 U/L (0-50); SODIUM 137 mmol/L (137-145); Total Protein 5.1 g/dL (6.3-8.2)
[2018-09-22 07:56] LABS: LIPASE < 10 U/L (23-300)
[2018-09-22] MEDS ORDERED: Lanoxin 0.5 MG/2 ML INJECTION IV ONE (07:56)
[2018-09-22] MEDS ORDERED: Vitamin K 10 MG/ML IM ONE (07:57)
[2018-09-22 08:03] LABS: Amphetamine,Urine NEGATIVE (NEGATIVE); Barbiturate,Urine NEGATIVE (NEGATIVE); Benzodiazepine,Urine NEGATIVE (NEGATIVE); Cocaine,Urine NEGATIVE (NEGATIVE); Methadone,Urine NEGATIVE (NEGATIVE); Opiate,Urine NEGATIVE (NEGATIVE); PCP,Urine NEGATIVE (NEGATIVE); THC,Urine NEGATIVE (NEGATIVE)
[2018-09-22 08:14] LABS: A-aADO2 78; ABG HEMOGLOBIN 11.7; ABG POTASSIUM 2.7 (3.5-5.1); ARTERIAL BLD GAS O2 SATURATION 97.1 % (95-100); ARTERIAL BLOOD GAS BASE EXCESS -2.7 (-2.0-2.0); ARTERIAL BLOOD GAS FIO2 28 %; ARTERIAL BLOOD GAS PCO2 40 mmHg (35-45); ARTERIAL BLOOD GAS PO2 72 mmHg (75-100); ARTERIAL BLOOD GAS pH 7.36 (7.35-7.45); CARBOXYHEMOGLOBIN 2.4 % THgb (0.0-6.9); HCO3- 22.6 (22-28); HGB O2 SAT 93.7 g/dF (94-100); Methhemoglobin 1.1 % (1.4-1.5); paO2 pAO1 0.48
[2018-09-22 08:15] LABS: ABG SITE LEFT RADIAL; ALLEN TEST OK? YES
[2018-09-22 08:22] LABS: INFLUENZA A NEGATIVE (NEGATIVE); INFLUENZA B NEGATIVE (NEGATIVE); RESPIRATORY SYNCTIAL VIRUS NEGATIVE (Negative)
[2018-09-22] MEDS ORDERED: Vitamin K 10 MG/ML ONE (08:23)
[2018-09-22] MEDS ORDERED: Lanoxin 0.5 MG/2 ML INJECTION ONE (08:23)
[2018-09-22 08:25] LABS: Granulocyte Absolute (ANC) 38.3 (1.4-6.9)
[2018-09-22 08:28] LABS: Lactic Acid 2.1 (0.4-2.0)
--- NOTE | 2018-09-22 08:54 | XRAY ---
Indication: Cough. Comparison: June 14, 2018. Portable chest grossly unchanged again demonstrating large right effusion and tiny left effusion with compressive atelectasis. Heart remains enlarged again with aortic calcifications. Bony thorax again demonstrate osteopenia and degenerative changes. No new cardiopulmonary abnormalities.
--- NOTE | 2018-09-22 08:57 | XRAY ---
Indication: Altered mental status. Multiple contiguous axial images obtained through the head without contrast. Comparison: None Age-appropriate global atrophy and moderate periventricular degenerative micro-ischemia bilaterally. Tiny parasellar pneumocephalus. No acute intracranial hemorrhage, abnormal extra-axial fluid collection, or mass effect. Fourth ventricle is midline without hydrocephalus. Sagittal and coronal reformatted images demonstrates tiny fracture involving the floor of the left middle fossa and minimally displaced fracture involving the medial plate of the left pterygoid process. Also nondisplaced bilateral condyle fractures of the mandible, best seen on sagittal reformatted images. Remaining bony calvarium intact. Visualized paranasal sinuses and mastoid air cells are clear. There are scattered air bubbles in the camp guard space, left greater than right. Lesser degree seen in the facial subcutaneous tissues, also left greater than right. Additional left retro-orbital intraconal air bubbles. Impression: 1. Tiny parasellar pneumocephalus and diffuse facial soft tissue emphysema including retro-orbital left globe. 2. Tiny fractures involving the floor of the left middle fossa and left pterygoid process as detailed. 3. Nondisplaced bilateral mandible condyle fractures. 4. No acute intracranial hemorrhage. 5. Normal aging brain including atrophy and degenerative micro-ischemia. Comment: Telephone report given to Dr. Cortez in the ER at 0840 hrs. on September 22, 2018. CT DI 69.52
[2018-09-22] MEDS ORDERED: POTASSIUM CHLORIDE 20 mEq IN WATER 100ML 20 MEQ/100 ML BAG IV ONE (09:40)
[2018-09-22] MEDS ORDERED: POTASSIUM CHLORIDE 20 mEq IN WATER 100ML 100 ML IV ONE (09:46)
[2018-09-22] MEDS ORDERED: FEVERALL 650 MG PR PRN (09:48)
[2018-09-22] MEDS ORDERED: Levofloxacin 500MG/100ML D5W 500 MG/100 ML BAG IV SCH (10:00)
[2018-09-22] MEDS ORDERED: DUONEB 0.5-3 MG/3 ml Neb IH SCH (11:00)
[2018-09-22] MEDS ORDERED: DUONEB 0.5-3 MG/3 ml Neb IH PRN ×2 (11:07→13:58)
--- NOTE | 2018-09-22 13:02 | PCM.HP ---
History of Present Illness - Chief Complaint Chief Complaint: c/o fever, chills, shortness of breath History of Present Illness: is a 88 year old male was bought in ER via ambulance with c/o fever with chills, confusion from MD - Review of Systems Constitutional: Fever, Chills Eyes: No Symptoms Ears, Nose, & Throat: No Symptoms Respiratory: Cough, Orthopnea, Short Of Breath, Wheezing Cardiac: Palpitations, Orthopnea, No Chest Pain, No Edema, No Syncope Abdominal/Gastrointestinal: No Abdominal Pain, No Nausea, No Vomiting, No Diarrhea Genitourinary Symptoms: Dysuria Musculoskeletal: No Back Pain, No Neck Pain Skin: No Rash Neurological: No Dizziness, No Focal Weakness, No Sensory Changes Psychological: No Symptoms Endocrine: No Symptoms Hematologic/Lymphatic: No Symptoms Immunological/Allergic: No Symptoms All Other Systems: Unable due to condition Medications & Allergies Home Medications: Home Medication List Alendronate Sodium 70 mg [Fosamax 70 MG] 70 mg PO Q7D 04/21/16 [History Confirmed 09/22/18] Ascorbic Acid [C-500] 500 mg PO DAILY 04/21/16 [History Confirmed 09/22/18] Docusate Sodium 100 mg [Colace 100 MG] 100 mg PO BID 04/21/16 [History Confirmed 09/22/18] Mag Hydrox/Al Hydrox/Simeth [Mylanta Maximum Strength Liq] 15 ml PO Q4HPRN PRN 04/21/16 [History Confirmed 09/22/18] Bisacodyl 5 mg [Dulcolax 5 mg] 2 tab PO DAILY PRN 06/15/18 [History Confirmed 09/22/18] Dextran 70/Hypromellose/Pf [Artificial Tears Drops] 1 drop OP BID 06/15/18 [ History Confirmed 09/22/18] Diltiazem HCl 240 mg [Cardizem CD 240 MG] 240 mg PO DAILY 06/15/18 [ History Confirmed 09/22/18] Ferrous Sulfate 325 mg [Feosol 325 mg] 325 mg PO BID 06/15/18 [History Confirmed 09/22/18] Gabapentin [Neurontin] 300 mg PO DAILY 06/15/18 [History Confirmed 09/22/18] Ipratropium/Albuterol Sulfate [Combivent Respimat 20-100 Mcg] 1 puff IH Q6H PRN 06/15/18 [History Confirmed 09/22/18] Ipratropium/Albuterol Sulfate [Iprat-Albut 0.5-3(2.5) mg/3 ml] 3 ml IH Q6H PRN 06/15/18 [History Confirmed 09/22/18] Magnesium Hydroxide 30 ml [Milk of Magnesia 30 ml] 30 ml PO DAILY PRN PRN 06/15/18 [History Confirmed 09/22/18] Mirtazapine [Remeron] 15 mg PO DAILY 06/15/18 [History Confirmed 09/22/18] Omeprazole 20 mg PO DAILY 06/15/18 [History Confirmed 09/22/18] Sennosides/Docusate Sodium [Senna-S Tablet] 2 tab PO DAILY 06/15/18 [History Confirmed 09/22/18] Simethicone 160 mg PO Q4HPRN PRN 06/15/18 [History Confirmed 09/22/18] Acetaminophen 500 mg [Tylenol Extra Strength 500 mg] 500 mg PO Q6HPRN PRN 09/22/18 [History Confirmed 09/22/18] Bisacodyl 10 mg [Dulcolax 10 MG SUPP] 10 mg RC UD 09/22/18 [History Confirmed 09/22/18] Losartan Potassium [Cozaar] 25 mg PO DAILY 09/22/18 [History Confirmed 09/22/18] Neomy Sulf/Bacitra/Polymyxin * [Triple Antibiotic Ointment] 1 applic TOP DAILY 09/22/18 [History Confirmed 09/22/18] Sertraline HCl [Zoloft] 50 mg PO DAILY 09/22/18 [History Confirmed 09/22/18] Triamcinolone Acetonide 0.1% [Kenalog 0.1% Ointment] 1 applic TP BID [History Confirmed 09/22/18] Allergies/Adverse Reactions: Allergies Allergy/AdvReac Type Severity Reaction Status Date / Time No Known Drug Allergies Allergy Verified 09/22/18 12:38 - Past Medical History Past Medical History: Yes Neurological History: Dementia ENT History: Cataracts Cardiac History: Arrhythmia, Hypertension Respiratory History: No Pertinent History Endocrine Medical History: No Pertinent History Musculoskelatal History: Arthritis, Fractures, Osteoporosis GI Medical History: GERD, Other History: Other Pyscho-Social History: Depression Male Reproductive Disorders: Prostate Cancer, Prostate Problems Comment: PROSTATE CA. MULTIPLE HEALING FRACTURES. MEGACOLON. AFIB - Past Surgical History Past Surgical History: Yes Neuro Surgical History: No Pertinent History Cardiac History: No Pertinent History Respiratory Surgery: No Pertinent History GI Surgical History: No Pertinent History Genitourinary Surgical Hx: No Pertinent History Musculskeletal Surgical Hx: Orthopedic Surgery Male Surgical History: Prostate Surgery Other Surgical History: hand surgery - Social History Smoking Status: Unknown if ever smoked Exposure to second hand smoke: No Alcohol: None Drug Use: none Significant Family History: other (lung cancer father) - Physical Exam Vital Signs: Vital Signs - 24 hr Temp Pulse Resp BP Pulse Ox 09/22/18 11:01 95 09/22/18 11:00 97.6 F 106 H 22 84/48 94 L 09/22/18 09:52 98 09/22/18 09:50 96 H 20 84/46 97 09/22/18 09:46 98.6 F 97 H 20 75/56 97 09/22/18 09:18 98.6 F 116 H 20 106/94 98 09/22/18 09:08 98.8 F 118 H 20 92/53 96 09/22/18 08:54 99.1 F 104 H 20 83/57 97 09/22/18 08:47 99.3 F 109 H 20 82/47 98 09/22/18 08:37 99.3 F 118 H 20 77/40 95 09/22/18 08:16 107 H 22 94 L 09/22/18 08:04 99.9 F 114 H 20 74/42 94 L 09/22/18 07:32 98 09/22/18 06:57 100.2 F 87 24 61/30 100 Oxygen-Last 24 hours O2 Percentage 2 Liters = 28% O2 Percentage 2 Liters = 28% O2 Percentage 2 Liters = 28% O2 Percentage 2 Liters = 28% O2 Percentage 2 Liters = 28% O2 Percentage 2 Liters = 28% O2 Percentage 2 Liters = 28% O2 Percentage 2 Liters = 28% O2 Percentage 2 Liters = 28% O2 Percentage 2 Liters = 28% General Appearance: moderate distress, alert Neurologic Exam: confusion, No motor deficits Eye Exam: PERRL/EOMI, eyes nml inspection Ears, Nose, Throat Exam: normal ENT inspection, TMs normal, pharynx normal, moist mucous membranes Neck Exam: normal inspection, non-tender, supple, full range of motion Respiratory Exam: normal breath sounds, lungs clear, No respiratory distress Cardiovascular Exam: regular rate/rhythm, normal heart sounds, normal peripheral pulses Gastrointestinal/Abdomen Exam: soft, normal bowel sounds, No tenderness, No mass Back Exam: normal inspection, normal range of motion, No CVA tenderness, No vertebral tenderness Extremity Exam: normal inspection, normal range of motion, pelvis stable Skin Exam: normal color, warm, dry, No rash Lymphatic Exam: No adenopathy Results - Labs Lab/Micro Results: Accuchecks Date 09/22/18 Time 11:30 Accucheck Value: 119 Lab Results-Last 24 Hours 09/22/18 09/22/18 09/22/18 Range/Units 07:15 07:15 07:15 WBC 41.6 H* (4.0-10.5) K/mm3 RBC 4.05 L (4.1-5.6) M/mm3 Hgb 12.2 L (12.5-18.0) gm/dl Hct 37.5 L (42-50) % MCV 92.6 (78-100) fl MCH 30.1 (26-32) pg MCHC 32.5 (32-36) g/dl RDW 15.4 H (11.5-14.0) % Plt Count 217 (150-450) K/mm3 MPV 9.1 (6-9.5) fl Absolute Granulocytes 38.3 H (1.4-6.9) Segmented Neutrophils 62 (36.-66.) % Band Neutrophils 30 H (0.0-2.0) % Lymphocytes (Manual) 1 L (24-44) % Monocytes (Manual) 4 (0.0-12.0) % Metamyelocytes 3 % Platelet Estimate NORMAL (NORMAL) RBC Morphology ABNORMAL Poikilocytosis 1+ Anisocytosis 1+ Ovalocytes 1+ Smear Path Review Pending PT 54.3 H (8.83-12.87) SECONDS INR 4.60 H (0.8-3.0) D-Dimer 4236 H* (215-500) ng/mL Puncture Site pCO2 (35-45) mmHg pO2 (75-100) mmHg Base Excess (-2.0-2.0) O2 Saturation (94-100) g/dF ABG pH (7.35-7.45) ABG HCO3 (22-28) ABG O2 Sat (Measured) (95-100) % John Test A-a Gradient a/A Ratio Hemoglobin Carboxyhemoglobin (0.0-6.9) % THgb Methemoglobin (1.4-1.5) % Temperature C POC O2 Flow Rate % Sodium 137 (137-145) mmol/L Potassium 3.1 L (3.5-5.1) mmol/L Chloride 102 (98-107) mmol/L Carbon Dioxide 26 (22-30) mmol/L Anion Gap 12.7 (5-15) MEQ/L BUN 23 H (9-20) mg/dL Creatinine 1.91 H (0.66-1.25) mg/dL Estimated GFR 35.4 ML/MIN Glucose 93 (74-106) mg/dL Hemoglobin A1c (4.5-6.0) % Lactic Acid (0.4-2.0) Calcium 8.0 L (8.4-10.2) mg/dL Magnesium (1.6-2.3) mg/dL Total Bilirubin 0.60 (0.2-1.3) mg/dL AST 30 (17-59) U/L ALT 16 (0-50) U/L Alkaline Phosphatase 114 (38-126) U/L Troponin I (0.000-0.034) ng/mL NT-Pro-B Natriuret Pep 31707 H (0-1800) pg/mL Serum Total Protein 5.1 L (6.3-8.2) g/dL Albumin 2.3 L (3.5-5.0) g/dL Amylase < 30 L (30-110) U/L Lipase < 10 L (23-300) U/L Urine Color (YELLOW) Urine Appearance (CLEAR) Urine pH (5-6) Ur Specific [place] (1.005-1.025) Urine Protein (Negative) Urine Ketones (NEGATIVE) Urine Blood (0-5) Pee/ul Urine Nitrite (NEGATIVE) Urine Bilirubin (NEGATIVE) Urine Urobilinogen (0-1) mg/dL Ur Leukocyte Esterase (NEGATIVE) Urine WBC (Auto) (0-5) /HPF Urine RBC (Auto) (0-2) /HPF U Epithel Cells (Auto) (FEW) /HPF Urine Bacteria (Auto) (NEGATIVE) /HPF Urine Culture Reflexed (NO) Urine Glucose (NEGATIVE) mg/dL Digoxin (0.8-1.9) ng/mL Urine Opiates Level (NEGATIVE) Ur Methadone (NEGATIVE) Urine Barbiturates (NEGATIVE) Ur Phencyclidine (PCP) (NEGATIVE) Urine Amphetamine (NEGATIVE) U Benzodiazepine Level (NEGATIVE) Urine Cocaine (NEGATIVE) Urine Marijuana (THC) (NEGATIVE) Influenza Type A Ag (NEGATIVE) Influenza Type B Ag (NEGATIVE) RSV (PCR) (Negative) 09/22/18 09/22/18 09/22/18 Range/Units 07:15 07:15 07:15 WBC (4.0-10.5) K/mm3 RBC (4.1-5.6) M/mm3 Hgb (12.5-18.0) gm/dl Hct (42-50) % MCV (78-100) fl MCH (26-32) pg MCHC (32-36) g/dl RDW (11.5-14.0) % Plt Count (150-450) K/mm3 MPV (6-9.5) fl Absolute Granulocytes (1.4-6.9) Segmented Neutrophils (36.-66.) % Band Neutrophils (0.0-2.0) % Lymphocytes (Manual) (24-44) % Monocytes (Manual) (0.0-12.0) % Metamyelocytes % Platelet Estimate (NORMAL) RBC Morphology Poikilocytosis Anisocytosis Ovalocytes Smear Path Review PT (8.83-12.87) SECONDS INR (0.8-3.0) D-Dimer (215-500) ng/mL Puncture Site pCO2 (35-45) mmHg pO2 (75-100) mmHg Base Excess (-2.0-2.0) O2 Saturation (94-100) g/dF ABG pH (7.35-7.45) ABG HCO3 (22-28) ABG O2 Sat (Measured) (95-100) % John Test A-a Gradient a/A Ratio Hemoglobin Carboxyhemoglobin (0.0-6.9) % THgb Methemoglobin (1.4-1.5) % Temperature C POC O2 Flow Rate % Sodium (137-145) mmol/L Potassium (3.5-5.1) mmol/L Chloride (98-107) mmol/L Carbon Dioxide (22-30) mmol/L Anion Gap (5-15) MEQ/L BUN (9-20) mg/dL Creatinine (0.66-1.25) mg/dL Estimated GFR ML/MIN Glucose (74-106) mg/dL Hemoglobin A1c (4.5-6.0) % Lactic Acid (0.4-2.0) Calcium (8.4-10.2) mg/dL Magnesium 1.8 (1.6-2.3) mg/dL Total Bilirubin (0.2-1.3) mg/dL AST (17-59) U/L ALT (0-50) U/L Alkaline Phosphatase (38-126) U/L Troponin I 0.095 H* (0.000-0.034) ng/mL NT-Pro-B Natriuret Pep (0-1800) pg/mL Serum Total Protein (6.3-8.2) g/dL Albumin (3.5-5.0) g/dL Amylase (30-110) U/L Lipase (23-300) U/L Urine Color (YELLOW) Urine Appearance (CLEAR) Urine pH (5-6) Ur Specific [place] (1.005-1.025) Urine Protein (Negative) Urine Ketones (NEGATIVE) Urine Blood (0-5) Pee/ul Urine Nitrite (NEGATIVE) Urine Bilirubin (NEGATIVE) Urine Urobilinogen (0-1) mg/dL Ur Leukocyte Esterase (NEGATIVE) Urine WBC (Auto) (0-5) /HPF Urine RBC (Auto) (0-2) /HPF U Epithel Cells (Auto) (FEW) /HPF Urine Bacteria (Auto) (NEGATIVE) /HPF Urine Culture Reflexed (NO) Urine Glucose (NEGATIVE) mg/dL Digoxin < 0.4 L (0.8-1.9) ng/mL Urine Opiates Level (NEGATIVE) Ur Methadone (NEGATIVE) Urine Barbiturates (NEGATIVE) Ur Phencyclidine (PCP) (NEGATIVE) Urine Amphetamine (NEGATIVE) U Benzodiazepine Level (NEGATIVE) Urine Cocaine (NEGATIVE) Urine Marijuana (THC) (NEGATIVE) Influenza Type A Ag (NEGATIVE) Influenza Type B Ag (NEGATIVE) RSV (PCR) (Negative) 09/22/18 09/22/18 09/22/18 Range/Units 07:20 07:32 07:32 WBC (4.0-10.5) K/mm3 RBC (4.1-5.6) M/mm3 Hgb (12.5-18.0) gm/dl Hct (42-50) % MCV (78-100) fl MCH (26-32) pg MCHC (32-36) g/dl RDW (11.5-14.0) % Plt Count (150-450) K/mm3 MPV (6-9.5) fl Absolute Granulocytes (1.4-6.9) Segmented Neutrophils (36.-66.) % Band Neutrophils (0.0-2.0) % Lymphocytes (Manual) (24-44) % Monocytes (Manual) (0.0-12.0) % Metamyelocytes % Platelet Estimate (NORMAL) RBC Morphology Poikilocytosis Anisocytosis Ovalocytes Smear Path Review PT (8.83-12.87) SECONDS INR (0.8-3.0) D-Dimer (215-500) ng/mL Puncture Site pCO2 (35-45) mmHg pO2 (75-100) mmHg Base Excess (-2.0-2.0) O2 Saturation (94-100) g/dF ABG pH (7.35-7.45) ABG HCO3 (22-28) ABG O2 Sat (Measured) (95-100) % John Test A-a Gradient a/A Ratio Hemoglobin Carboxyhemoglobin (0.0-6.9) % THgb Methemoglobin (1.4-1.5) % Temperature C POC O2 Flow Rate % Sodium (137-145) mmol/L Potassium (3.5-5.1) mmol/L Chloride (98-107) mmol/L Carbon Dioxide (22-30) mmol/L Anion Gap (5-15) MEQ/L BUN (9-20) mg/dL Creatinine (0.66-1.25) mg/dL Estimated GFR ML/MIN Glucose (74-106) mg/dL Hemoglobin A1c (4.5-6.0) % Lactic Acid 4.0 H (0.4-2.0) Calcium (8.4-10.2) mg/dL Magnesium (1.6-2.3) mg/dL Total Bilirubin (0.2-1.3) mg/dL AST (17-59) U/L ALT (0-50) U/L Alkaline Phosphatase (38-126) U/L Troponin I (0.000-0.034) ng/mL NT-Pro-B Natriuret Pep (0-1800) pg/mL Serum Total Protein (6.3-8.2) g/dL Albumin (3.5-5.0) g/dL Amylase (30-110) U/L Lipase (23-300) U/L Urine Color YELLOW (YELLOW) Urine Appearance TURBID (CLEAR) Urine pH 8.0 (5-6) Ur Specific [place] 1.010 (1.005-1.025) Urine Protein 300 (Negative) Urine Ketones NEGATIVE (NEGATIVE) Urine Blood 250 (0-5) Pee/ul Urine Nitrite NEGATIVE (NEGATIVE) Urine Bilirubin NEGATIVE (NEGATIVE) Urine Urobilinogen NORMAL (0-1) mg/dL Ur Leukocyte Esterase 2+ (NEGATIVE) Urine WBC (Auto) >100 (0-5) /HPF Urine RBC (Auto) >101 (0-2) /HPF U Epithel Cells (Auto) OCCASIONAL (FEW) /HPF Urine Bacteria (Auto) MANY (NEGATIVE) /HPF Urine Culture Reflexed ORDERED SEPARATELY (NO) Urine Glucose NEGATIVE (NEGATIVE) mg/dL Digoxin (0.8-1.9) ng/mL Urine Opiates Level NEGATIVE (NEGATIVE) Ur Methadone NEGATIVE (NEGATIVE) Urine Barbiturates NEGATIVE (NEGATIVE) Ur Phencyclidine (PCP) NEGATIVE (NEGATIVE) Urine Amphetamine NEGATIVE (NEGATIVE) U Benzodiazepine Level NEGATIVE (NEGATIVE) Urine Cocaine NEGATIVE (NEGATIVE) Urine Marijuana (THC) NEGATIVE (NEGATIVE) Influenza Type A Ag (NEGATIVE) Influenza Type B Ag (NEGATIVE) RSV (PCR) (Negative) 09/22/18 09/22/18 09/22/18 Range/Units 07:55 08:10 08:24 WBC (4.0-10.5) K/mm3 RBC (4.1-5.6) M/mm3 Hgb (12.5-18.0) gm/dl Hct (42-50) % MCV (78-100) fl MCH (26-32) pg MCHC (32-36) g/dl RDW (11.5-14.0) % Plt Count (150-450) K/mm3 MPV (6-9.5) fl Absolute Granulocytes (1.4-6.9) Segmented Neutrophils (36.-66.) % Band Neutrophils (0.0-2.0) % Lymphocytes (Manual) (24-44) % Monocytes (Manual) (0.0-12.0) % Metamyelocytes % Platelet Estimate (NORMAL) RBC Morphology Poikilocytosis Anisocytosis Ovalocytes Smear Path Review PT (8.83-12.87) SECONDS INR (0.8-3.0) D-Dimer (215-500) ng/mL Puncture Site LEFT RADIAL pCO2 40 (35-45) mmHg pO2 72 L (75-100) mmHg Base Excess -2.7 L (-2.0-2.0) O2 Saturation 93.7 L (94-100) g/dF ABG pH 7.36 (7.35-7.45) ABG HCO3 22.6 (22-28) ABG O2 Sat (Measured) 97.1 (95-100) % John Test YES A-a Gradient 78 a/A Ratio 0.48 Hemoglobin 11.7 Carboxyhemoglobin 2.4 (0.0-6.9) % THgb Methemoglobin 1.1 L (1.4-1.5) % Temperature 37.0 C POC O2 Flow Rate 28 % Sodium (137-145) mmol/L Potassium 2.7 L* (3.5-5.1) mmol/L Chloride (98-107) mmol/L Carbon Dioxide (22-30) mmol/L Anion Gap (5-15) MEQ/L BUN (9-20) mg/dL Creatinine (0.66-1.25) mg/dL Estimated GFR ML/MIN Glucose (74-106) mg/dL Hemoglobin A1c (4.5-6.0) % Lactic Acid 2.1 H (0.4-2.0) Calcium (8.4-10.2) mg/dL Magnesium (1.6-2.3) mg/dL Total Bilirubin (0.2-1.3) mg/dL AST (17-59) U/L ALT (0-50) U/L Alkaline Phosphatase (38-126) U/L Troponin I (0.000-0.034) ng/mL NT-Pro-B Natriuret Pep (0-1800) pg/mL Serum Total Protein (6.3-8.2) g/dL Albumin (3.5-5.0) g/dL Amylase (30-110) U/L Lipase (23-300) U/L Urine Color (YELLOW) Urine Appearance (CLEAR) Urine pH (5-6) Ur Specific [place] (1.005-1.025) Urine Protein (Negative) Urine Ketones (NEGATIVE) Urine Blood (0-5) Pee/ul Urine Nitrite (NEGATIVE) Urine Bilirubin (NEGATIVE) Urine Urobilinogen (0-1) mg/dL Ur Leukocyte Esterase (NEGATIVE) Urine WBC (Auto) (0-5) /HPF Urine RBC (Auto) (0-2) /HPF U Epithel Cells (Auto) (FEW) /HPF Urine Bacteria (Auto) (NEGATIVE) /HPF Urine Culture Reflexed (NO) Urine Glucose (NEGATIVE) mg/dL Digoxin (0.8-1.9) ng/mL Urine Opiates Level (NEGATIVE) Ur Methadone (NEGATIVE) Urine Barbiturates (NEGATIVE) Ur Phencyclidine (PCP) (NEGATIVE) Urine Amphetamine (NEGATIVE) U Benzodiazepine Level (NEGATIVE) Urine Cocaine (NEGATIVE) Urine Marijuana (THC) (NEGATIVE) Influenza Type A Ag NEGATIVE (NEGATIVE) Influenza Type B Ag NEGATIVE (NEGATIVE) RSV (PCR) NEGATIVE (Negative) 09/22/18 09/22/18 Range/Units 10:15 11:00 WBC (4.0-10.5) K/mm3 RBC (4.1-5.6) M/mm3 Hgb (12.5-18.0) gm/dl Hct (42-50) % MCV (78-100) fl MCH (26-32) pg MCHC (32-36) g/dl RDW (11.5-14.0) % Plt Count (150-450) K/mm3 MPV (6-9.5) fl Absolute Granulocytes (1.4-6.9) Segmented Neutrophils (36.-66.) % Band Neutrophils (0.0-2.0) % Lymphocytes (Manual) (24-44) % Monocytes (Manual) (0.0-12.0) % Metamyelocytes % Platelet Estimate (NORMAL) RBC Morphology Poikilocytosis Anisocytosis Ovalocytes Smear Path Review PT (8.83-12.87) SECONDS INR (0.8-3.0) D-Dimer (215-500) ng/mL Puncture Site pCO2 (35-45) mmHg pO2 (75-100) mmHg Base Excess (-2.0-2.0) O2 Saturation (94-100) g/dF ABG pH (7.35-7.45) ABG HCO3 (22-28) ABG O2 Sat (Measured) (95-100) % John Test A-a Gradient a/A Ratio Hemoglobin Carboxyhemoglobin (0.0-6.9) % THgb Methemoglobin (1.4-1.5) % Temperature C POC O2 Flow Rate % Sodium (137-145) mmol/L Potassium (3.5-5.1) mmol/L Chloride (98-107) mmol/L Carbon Dioxide (22-30) mmol/L Anion Gap (5-15) MEQ/L BUN (9-20) mg/dL Creatinine (0.66-1.25) mg/dL Estimated GFR ML/MIN Glucose (74-106) mg/dL Hemoglobin A1c 5.15 (4.5-6.0) % Lactic Acid (0.4-2.0) Calcium (8.4-10.2) mg/dL Magnesium (1.6-2.3) mg/dL Total Bilirubin (0.2-1.3) mg/dL AST (17-59) U/L ALT (0-50) U/L Alkaline Phosphatase (38-126) U/L Troponin I 0.147 H* (0.000-0.034) ng/mL NT-Pro-B Natriuret Pep (0-1800) pg/mL Serum Total Protein (6.3-8.2) g/dL Albumin (3.5-5.0) g/dL Amylase (30-110) U/L Lipase (23-300) U/L Urine Color (YELLOW) Urine Appearance (CLEAR) Urine pH (5-6) Ur Specific [place] (1.005-1.025) Urine Protein (Negative) Urine Ketones (NEGATIVE) Urine Blood (0-5) Pee/ul Urine Nitrite (NEGATIVE) Urine Bilirubin (NEGATIVE) Urine Urobilinogen (0-1) mg/dL Ur Leukocyte Esterase (NEGATIVE) Urine WBC (Auto) (0-5) /HPF Urine RBC (Auto) (0-2) /HPF U Epithel Cells (Auto) (FEW) /HPF Urine Bacteria (Auto) (NEGATIVE) /HPF Urine Culture Reflexed (NO) Urine Glucose (NEGATIVE) mg/dL Digoxin (0.8-1.9) ng/mL Urine Opiates Level (NEGATIVE) Ur Methadone (NEGATIVE) Urine Barbiturates (NEGATIVE) Ur Phencyclidine (PCP) (NEGATIVE) Urine Amphetamine (NEGATIVE) U Benzodiazepine Level (NEGATIVE) Urine Cocaine (NEGATIVE) Urine Marijuana (THC) (NEGATIVE) Influenza Type A Ag (NEGATIVE) Influenza Type B Ag (NEGATIVE) RSV (PCR) (Negative) Accuchecks Date 09/22/18 Time 11:30 Accucheck Value: 119 - Radiology Impressions Radiology Exams & Impressions: Radiology Procedures Category Date Time Status CHEST 1 VIEW (PORTABLE) Stat Exams 09/22/18 06:59 Completed HEAD WITHOUT CONTRAST [CT] Stat Exams 09/22/18 06:59 Completed - Other Procedures and Tests Respiratory Therapy 09/22/18 08:16 Peak Expiratory Flow Rate ONCE Respiratory Therapy Assessment DAILY 09/22/18 09:42 Oxygen Nasal Cannula 2 lpm Assessment/Plan (1) Sepsis associated hypotension Current Visit: Yes Status: Acute Assessment & Plan: Last Vital Signs Temp 97.6 F 09/22/18 11:00 Pulse 106 H 09/22/18 11:00 Resp 22 09/22/18 11:00 BP 84/48 09/22/18 11:00 Pulse Ox 95 09/22/18 11:01 Allergies No Known Drug Allergies Allergy (Verified 09/22/18 12:38) Active Medications Acetaminophen (Feverall 650 Mg) 650 mg NC Q4HPRN PRN PRN Reason: FEVER Stop: 10/22/18 09:47 Albuterol/Ipratropium (Duoneb 0.5-3 Mg/3 Ml Neb) 3 ml IH Q6HPRN PRN PRN Reason: SHORTNESS OF BREATH/WHEEZING Stop: 10/22/18 11:06 Sodium Chloride (Sodium Chloride 0.9% 1000 Ml) 1,000 mls @ 100 mls/hr IV .Q10H GABRIELLA Stop: 10/22/18 06:59 Last Admin: 09/22/18 10:41 Dose: 100 mls/hr Levofloxacin/Dextrose (Levofloxacin 500mg/100ml D5w) 500 mg in 100 mls @ 100 mls/hr IV Q48H GABRIELLA Stop: 10/22/18 09:59 Intake & Output 09/22/18 09/23/18 11:59 11:59 Weight 62.9 kg Orders 09/22/18 10:59 Pulse Oximetry .spot check 09/22/18 11:07 Albuterol/Ipratropium 3ml Neb* [DUONEB 0.5-3 MG/3 ml Neb] 3 ml IH Q6HPRN PRN 09/22/18 14:15 Pot [Potassium] Urgent Lab Tests 09/22/18 09/22/18 09/22/18 07:15 07:15 07:15 WBC 41.6 H* RBC 4.05 L Hgb 12.2 L Hct 37.5 L MCV 92.6 MCH 30.1 MCHC 32.5 RDW 15.4 H Plt Count 217 MPV 9.1 Absolute Granulocytes 38.3 H Segmented Neutrophils 62 Band Neutrophils 30 H Lymphocytes (Manual) 1 L Monocytes (Manual) 4 Metamyelocytes 3 Platelet Estimate NORMAL RBC Morphology ABNORMAL Poikilocytosis 1+ Anisocytosis 1+ Ovalocytes 1+ Smear Path Review Pending PT 54.3 H INR 4.60 H D-Dimer 4236 H* Puncture Site pCO2 pO2 Base Excess O2 Saturation ABG pH ABG HCO3 ABG O2 Sat (Measured) John Test A-a Gradient a/A Ratio Hemoglobin Carboxyhemoglobin Methemoglobin Temperature POC O2 Flow Rate Sodium 137 Potassium 3.1 L Chloride 102 Carbon Dioxide 26 Anion Gap 12.7 BUN 23 H Creatinine 1.91 H Estimated GFR 35.4 Glucose 93 Hemoglobin A1c Lactic Acid Calcium 8.0 L Magnesium Total Bilirubin 0.60 AST 30 ALT 16 Alkaline Phosphatase 114 Troponin I NT-Pro-B Natriuret Pep 54313 H Serum Total Protein 5.1 L Albumin 2.3 L Amylase < 30 L Lipase < 10 L Urine Color Urine Appearance Urine pH Ur Specific [place] Urine Protein Urine Ketones Urine Blood Urine Nitrite Urine Bilirubin Urine Urobilinogen Ur Leukocyte Esterase Urine WBC (Auto) Urine RBC (Auto) U Epithel Cells (Auto) Urine Bacteria (Auto) Urine Culture Reflexed Urine Glucose Digoxin Urine Opiates Level Ur Methadone Urine Barbiturates Ur Phencyclidine (PCP) Urine Amphetamine U Benzodiazepine Level Urine Cocaine Urine Marijuana (THC) Influenza Type A Ag Influenza Type B Ag RSV (PCR) 09/22/18 09/22/18 09/22/18 07:15 07:15 07:15 WBC RBC Hgb Hct MCV MCH MCHC RDW Plt Count MPV Absolute Granulocytes Segmented Neutrophils Band Neutrophils Lymphocytes (Manual) Monocytes (Manual) Metamyelocytes Platelet Estimate RBC Morphology Poikilocytosis Anisocytosis Ovalocytes Smear Path Review PT INR D-Dimer Puncture Site pCO2 pO2 Base Excess O2 Saturation ABG pH ABG HCO3 ABG O2 Sat (Measured) John Test A-a Gradient a/A Ratio Hemoglobin Carboxyhemoglobin Methemoglobin Temperature POC O2 Flow Rate Sodium Potassium Chloride Carbon Dioxide Anion Gap BUN Creatinine Estimated GFR Glucose Hemoglobin A1c Lactic Acid Calcium Magnesium 1.8 Total Bilirubin AST ALT Alkaline Phosphatase Troponin I 0.095 H* NT-Pro-B Natriuret Pep Serum Total Protein Albumin Amylase Lipase Urine Color Urine Appearance Urine pH Ur Specific [place] Urine Protein Urine Ketones Urine Blood Urine Nitrite Urine Bilirubin Urine Urobilinogen Ur Leukocyte Esterase Urine WBC (Auto) Urine RBC (Auto) U Epithel Cells (Auto) Urine Bacteria (Auto) Urine Culture Reflexed Urine Glucose Digoxin < 0.4 L Urine Opiates Level Ur Methadone Urine Barbiturates Ur Phencyclidine (PCP) Urine Amphetamine U Benzodiazepine Level Urine Cocaine Urine Marijuana (THC) Influenza Type A Ag Influenza Type B Ag RSV (PCR) 09/22/18 09/22/18 09/22/18 07:20 07:32 07:32 WBC RBC Hgb Hct MCV MCH MCHC RDW Plt Count MPV Absolute Granulocytes Segmented Neutrophils Band Neutrophils Lymphocytes (Manual) Monocytes (Manual) Metamyelocytes Platelet Estimate RBC Morphology Poikilocytosis Anisocytosis Ovalocytes Smear Path Review PT INR D-Dimer Puncture Site pCO2 pO2 Base Excess O2 Saturation ABG pH ABG HCO3 ABG O2 Sat (Measured) John Test A-a Gradient a/A Ratio Hemoglobin Carboxyhemoglobin Methemoglobin Temperature POC O2 Flow Rate Sodium Potassium Chloride Carbon Dioxide Anion Gap BUN Creatinine Estimated GFR Glucose Hemoglobin A1c Lactic Acid 4.0 H Calcium Magnesium Total Bilirubin AST ALT Alkaline Phosphatase Troponin I NT-Pro-B Natriuret Pep Serum Total Protein Albumin Amylase Lipase Urine Color YELLOW Urine Appearance TURBID Urine pH 8.0 Ur Specific [place] 1.010 Urine Protein 300 Urine Ketones NEGATIVE Urine Blood 250 Urine Nitrite NEGATIVE Urine Bilirubin NEGATIVE Urine Urobilinogen NORMAL Ur Leukocyte Esterase 2+ Urine WBC (Auto) >100 Urine RBC (Auto) >101 U Epithel Cells (Auto) OCCASIONAL Urine Bacteria (Auto) MANY Urine Culture Reflexed ORDERED SEPARATELY Urine Glucose NEGATIVE Digoxin Urine Opiates Level NEGATIVE Ur Methadone NEGATIVE Urine Barbiturates NEGATIVE Ur Phencyclidine (PCP) NEGATIVE Urine Amphetamine NEGATIVE U Benzodiazepine Level NEGATIVE Urine Cocaine NEGATIVE Urine Marijuana (THC) NEGATIVE Influenza Type A Ag Influenza Type B Ag RSV (PCR) 09/22/18 09/22/18 09/22/18 07:55 08:10 08:24 WBC RBC Hgb Hct MCV MCH MCHC RDW Plt Count MPV Absolute Granulocytes Segmented Neutrophils Band Neutrophils Lymphocytes (Manual) Monocytes (Manual) Metamyelocytes Platelet Estimate RBC Morphology Poikilocytosis Anisocytosis Ovalocytes Smear Path Review PT INR D-Dimer Puncture Site LEFT RADIAL pCO2 40 pO2 72 L Base Excess -2.7 L O2 Saturation 93.7 L ABG pH 7.36 ABG HCO3 22.6 ABG O2 Sat (Measured) 97.1 John Test YES A-a Gradient 78 a/A Ratio 0.48 Hemoglobin 11.7 Carboxyhemoglobin 2.4 Methemoglobin 1.1 L Temperature 37.0 POC O2 Flow Rate 28 Sodium Potassium 2.7 L* Chloride Carbon Dioxide Anion Gap BUN Creatinine Estimated GFR Glucose Hemoglobin A1c Lactic Acid 2.1 H Calcium Magnesium Total Bilirubin AST ALT Alkaline Phosphatase Troponin I NT-Pro-B Natriuret Pep Serum Total Protein Albumin Amylase Lipase Urine Color Urine Appearance Urine pH Ur Specific [place] Urine Protein Urine Ketones Urine Blood Urine Nitrite Urine Bilirubin Urine Urobilinogen Ur Leukocyte Esterase Urine WBC (Auto) Urine RBC (Auto) U Epithel Cells (Auto) Urine Bacteria (Auto) Urine Culture Reflexed Urine Glucose Digoxin Urine Opiates Level Ur Methadone Urine Barbiturates Ur Phencyclidine (PCP) Urine Amphetamine U Benzodiazepine Level Urine Cocaine Urine Marijuana (THC) Influenza Type A Ag NEGATIVE Influenza Type B Ag NEGATIVE RSV (PCR) NEGATIVE 09/22/18 09/22/18 10:15 11:00 WBC RBC Hgb Hct MCV MCH MCHC RDW Plt Count MPV Absolute Granulocytes Segmented Neutrophils Band Neutrophils Lymphocytes (Manual) Monocytes (Manual) Metamyelocytes Platelet Estimate RBC Morphology Poikilocytosis Anisocytosis Ovalocytes Smear Path Review PT INR D-Dimer Puncture Site pCO2 pO2 Base Excess O2 Saturation ABG pH ABG HCO3 ABG O2 Sat (Measured) John Test A-a Gradient a/A Ratio Hemoglobin Carboxyhemoglobin Methemoglobin Temperature POC O2 Flow Rate Sodium Potassium Chloride Carbon Dioxide Anion Gap BUN Creatinine Estimated GFR Glucose Hemoglobin A1c 5.15 Lactic Acid Calcium Magnesium Total Bilirubin AST ALT Alkaline Phosphatase Troponin I 0.147 H* NT-Pro-B Natriuret Pep Serum Total Protein Albumin Amylase Lipase Urine Color Urine Appearance Urine pH Ur Specific [place] Urine Protein Urine Ketones Urine Blood Urine Nitrite Urine Bilirubin Urine Urobilinogen Ur Leukocyte Esterase Urine WBC (Auto) Urine RBC (Auto) U Epithel Cells (Auto) Urine Bacteria (Auto) Urine Culture Reflexed Urine Glucose Digoxin Urine Opiates Level Ur Methadone Urine Barbiturates Ur Phencyclidine (PCP) Urine Amphetamine U Benzodiazepine Level Urine Cocaine Urine Marijuana (THC) Influenza Type A Ag Influenza Type B Ag RSV (PCR) Code(s): A41.9 - SEPSIS, UNSPECIFIED ORGANISM; I95.9 - HYPOTENSION, UNSPECIFIED (2) Pneumonia Current Visit: Yes Status: Acute Qualifiers: Pneumonia type: due to Klebsiella pneumoniae Laterality: right Lung location: unspecified part of lung Qualified Code(s): J15.0 - Pneumonia due to Klebsiella pneumoniae Code(s): J18.9 - PNEUMONIA, UNSPECIFIED ORGANISM (3) UTI (urinary tract infection) Current Visit: Yes Status: Acute Qualifiers: Urinary tract infection type: acute pyelonephritis Qualified Code(s): N10 - Acute pyelonephritis Code(s): N39.0 - URINARY TRACT INFECTION, SITE NOT SPECIFIED (4) UTI (urinary tract infection) Current Visit: No Status: Acute Onset Date: ~06/15/18 Qualifiers: Indwelling urinary catheter type: unspecified Encounter type: initial encounter Code(s): N39.0 - URINARY TRACT INFECTION, SITE NOT SPECIFIED (5) Atrial fibrillation Current Visit: No Status: Chronic Qualifiers: Atrial fibrillation type: chronic Code(s): I48.91 - UNSPECIFIED ATRIAL FIBRILLATION
[2018-09-22] MEDS ORDERED: MILK OF MAGNESIA 30 ML PO PRN (13:58)
[2018-09-22] MEDS ORDERED: Mylicon 80MG PO PRN (13:58)
[2018-09-22] MEDS ORDERED: MAALOX ES 30 ML UNIT DOSE PO PRN (13:58)
[2018-09-22] MEDS ORDERED: DULCOLAX 5 MG PO PRN (13:58)
[2018-09-22] MEDS ORDERED: Dulcolax 10 MG SUPP RC PRN (14:00)
[2018-09-22] MEDS: Cozaar 50 MG PO SCH (14:56)
[2018-09-22] MEDS: Cardizem CD 120 MG PO SCH (14:56)
[2018-09-22] MEDS: NEURONTIN 300 MG PO SCH (14:57)
[2018-09-22] MEDS: Senokot-S Tablet PO SCH (14:58)
[2018-09-22] MEDS: Protonix 40MG Tablet PO SCH (14:58)
[2018-09-22] MEDS: REMERON 30 MG PO SCH (14:58)
[2018-09-22] MEDS: Vitamin C 500 MG PO SCH (14:58)
[2018-09-22] MEDS: ZOLOFT 50 MG TABLET PO SCH (14:59)
[2018-09-22] MEDS ORDERED: Cardizem CD 240 MG PO SCH (15:00)
[2018-09-22] MEDS: Artificial Tears 15 ML OP SCH (21:10)
[2018-09-22] MEDS: KENALOG 0.1% OINTMENT TP SCH (21:11)
[2018-09-22] MEDS: FEOSOL 325 MG PO SCH (21:13)
[2018-09-22] MEDS: Colace 100 MG PO SCH (21:13)
[2018-09-22] MEDS ORDERED: DEXTRAN OP SCH (22:00)
[2018-09-22] MEDS ORDERED: HYPROMELLOSE OP SCH (22:00)
[2018-09-23] MEDS: Sodium Chloride 0.9% 1000 ML 1,000 ML IV SCH ×2 (05:37→16:11)
[2018-09-23] MEDS ORDERED: NON-FORMULARY ITEM (Losartan Potassium [Cozaar] 25 MG) PO SCH (10:00)
[2018-09-23] MEDS ORDERED: Triple Antibiotic Ointment TP PRN (10:00)
[2018-09-23] MEDS ORDERED: ASCORBIC ACID 500 MG PO SCH (10:00)
--- NOTE | 2018-09-23 10:04 | PCM.NOTE ---
Date and Time: 09/23/18 1000 Subjective Assessment: patient wants to drink, troponin has peaked, recent lab value slightly decreased. he has been hemodynamically stable. he states he hurts all over, feels terrible and wants a drink of water. currently ordered NPO Objective Exam General Appearance: mild distress Neurologic Exam: No oriented x 3 Skin Exam: normal color, warm, dry Respiratory Exam: normal breath sounds, lungs clear, No respiratory distress Cardiovascular Exam: regular rate/rhythm Gastrointestinal/Abdomen Exam: soft, No tenderness, No mass Extremity Exam: normal inspection, normal range of motion OBJECTIVE DATA Vital Signs: Vital Signs - 24 hr Temp Pulse Resp BP Pulse Ox 09/23/18 08:45 95 09/23/18 08:44 88 16 95 09/23/18 07:02 97.8 F 64 20 103/58 96 09/23/18 04:00 97.6 F 89 22 101/47 96 09/22/18 23:51 98.0 F 78 16 102/51 95 09/22/18 20:30 71 20 94 L 09/22/18 19:46 97.8 F 80 20 109/53 96 09/22/18 16:00 98.6 F 90 24 102/57 96 09/22/18 13:05 98.8 F 91 H 28 H 88/50 09/22/18 12:00 98.8 F 91 H 18 88/50 09/22/18 11:01 95 09/22/18 11:00 97.6 F 106 H 22 84/48 94 L Oxygen-Last 24 hours O2 Percentage 2 Liters = 28% O2 Percentage 2 Liters = 28% O2 Percentage 2 Liters = 28% O2 Percentage 2 Liters = 28% O2 Percentage 2 Liters = 28% O2 Percentage 2 Liters = 28% O2 Percentage 2 Liters = 28% O2 Percentage 2 Liters = 28% Oxygen Flowrate (L/min)-RT 2 Oxygen Flowrate (L/min)-RT 2 Oxygen Flowrate (L/min)-RT 2 Pain Assessment - Last Documented Pain Intensity 5 Pain Scale Used 0-10 Pain Scale Intake and Output: Intake & Output 09/20/18 09/21/18 09/22/18 09/23/18 11:59 11:59 11:59 11:59 Intake Total 5719 Output Total 490 Balance 5229 Weight 62.9 kg Lab Results: Accuchecks Date 09/22/18 Date 09/22/18 Date 09/22/18 Time 20:10 Time 16:30 Time 11:30 Accucheck Value: 92 Accucheck Value: 133 Accucheck Value: 119 Lab Results-Last 24 Hours 09/22/18 09/22/18 09/22/18 Range/Units 10:15 11:00 13:45 Potassium (3.5-5.1) mmol/L Hemoglobin A1c 5.15 (4.5-6.0) % Troponin I 0.147 H* 0.179 H* (0.000-0.034) ng/mL 09/22/18 09/22/18 09/22/18 Range/Units 13:45 16:22 19:05 Potassium 3.5 (3.5-5.1) mmol/L Hemoglobin A1c (4.5-6.0) % Troponin I 0.205 H* 0.198 H* (0.000-0.034) ng/mL Radiology Exams: Radiology Procedures Category Date Time Status CHEST 1 VIEW (PORTABLE) Stat Exams 09/22/18 06:59 Completed HEAD WITHOUT CONTRAST [CT] Stat Exams 09/22/18 06:59 Completed Assessment/Plan (1) Non-ST elevation MD (NSTEMI) Current Visit: Yes Status: Acute Assessment & Plan: per Dr Casiano he has discussed with the patient's son and currently focusing on comfort measures, he is SCO. there is no family present at bedside today. Code(s): I21.4 - NON-ST ELEVATION (NSTEMI) MYOCARDIAL INFARCTION (2) Pneumonia Current Visit: Yes Status: Acute Qualifiers: Pneumonia type: due to Klebsiella pneumoniae Laterality: right Lung location: unspecified part of lung Qualified Code(s): J15.0 - Pneumonia due to Klebsiella pneumoniae Assessment & Plan: on levaquin Code(s): J18.9 - PNEUMONIA, UNSPECIFIED ORGANISM (3) Sepsis associated hypotension Current Visit: Yes Status: Acute Assessment & Plan: stable currently, on levaquin. likely related to MD and sepsis. prognosis is guarded Code(s): A41.9 - SEPSIS, UNSPECIFIED ORGANISM; I95.9 - HYPOTENSION, UNSPECIFIED (4) UTI (urinary tract infection) Current Visit: Yes Status: Acute Qualifiers: Urinary tract infection type: acute pyelonephritis Qualified Code(s): N10 - Acute pyelonephritis Assessment & Plan: on levaquin, urine culture pending. Code(s): N39.0 - URINARY TRACT INFECTION, SITE NOT SPECIFIED
[2018-09-23] MEDS: Cozaar 50 MG PO SCH (10:18)
[2018-09-23] MEDS: KENALOG 0.1% OINTMENT TP SCH ×2 (10:31→21:47)
[2018-09-23] MEDS: Artificial Tears 15 ML OP SCH ×2 (10:32→21:47)
[2018-09-23] MEDS: NEURONTIN 300 MG PO SCH (11:57)
[2018-09-23] MEDS: Vitamin C 500 MG PO SCH (11:57)
[2018-09-23] MEDS: FEOSOL 325 MG PO SCH ×2 (11:57→21:47)
[2018-09-23] MEDS: Protonix 40MG Tablet PO SCH (11:57)
[2018-09-23] MEDS: REMERON 30 MG PO SCH (11:57)
[2018-09-23] MEDS: ZOLOFT 50 MG TABLET PO SCH (11:58)
[2018-09-23] MEDS: Senokot-S Tablet PO SCH (11:58)
[2018-09-23] MEDS: Colace 100 MG PO SCH ×3 (11:58→21:49)
[2018-09-23] MEDS: Cardizem CD 120 MG PO SCH (11:58)
[2018-09-23 12:59] LABS: Adenovirus F 40/41 NEGATIVE (NEGATIVE); Astrovirus NEGATIVE (NEGATIVE); Campylobacter NEGATIVE (NEGATIVE); Cyclospora cayentanensis NEGATIVE (NEGATIVE); Entamoeaba histolytica NEGATIVE (NEGATIVE); Enteroaggregative E.coli NEGATIVE (NEGATIVE); Giardia lamblia NEGATIVE (NEGATIVE); Rotavirus A NEGATIVE (NEGATIVE); Salmonella NEGATIVE (NEGATIVE); Sapovirus NEGATIVE (NEGATIVE); Shiga-like toxin prod.E.coli NEGATIVE (NEGATIVE); Vibrio NEGATIVE (NEGATIVE)
[2018-09-23 13:01] LABS: C. Difficile Organism POSITIVE (NEGATIVE)
[2018-09-23] MEDS: FLAGYL 500 MG IVPB 500 MG/100 ML BAG IV SCH ×3 (14:06→23:55)
[2018-09-24] MEDS: Sodium Chloride 0.9% 1000 ML 1,000 ML IV SCH ×2 (03:09→15:11)
[2018-09-24] MEDS: FLAGYL 500 MG IVPB 500 MG/100 ML BAG IV SCH ×3 (05:43→17:28)
--- NOTE | 2018-09-24 09:02 | PCM.NOTE ---
Date and Time: 09/24/18 0900 Subjective Assessment: patient in bed, tells me to "go away" when I ask how he is doing this morning. he will not answer any other questions, complains of being cold so I gave him an extra blanket today. Objective Exam General Appearance: no apparent distress, alert Skin Exam: normal color, warm, dry Respiratory Exam: normal breath sounds, lungs clear, No respiratory distress Cardiovascular Exam: regular rate/rhythm, normal heart sounds Gastrointestinal/Abdomen Exam: soft, No tenderness, No mass OBJECTIVE DATA Vital Signs: Vital Signs - 24 hr Temp Pulse Resp BP Pulse Ox 09/24/18 07:29 74 18 95 09/24/18 07:21 97.8 F 78 18 110/55 96 09/24/18 04:30 97.4 F 82 20 117/58 96 09/24/18 00:05 97.9 F 66 18 105/53 94 L 09/24/18 00:00 18 09/23/18 20:10 98.2 F 73 19 103/57 96 09/23/18 20:00 20 09/23/18 16:22 97.8 F 80 20 112/68 95 09/23/18 12:33 97.8 F 87 20 128/70 95 Oxygen-Last 24 hours O2 Percentage 2 Liters = 28% O2 Percentage 2 Liters = 28% O2 Percentage 2 Liters = 28% O2 Percentage 2 Liters = 28% Pain Assessment - Last Documented Pain Intensity 5 Pain Scale Used [facility] Intake and Output: Intake & Output 09/21/18 09/22/18 09/23/18 09/24/18 11:59 11:59 11:59 11:59 Intake Total 5719 3664 Output Total 490 600 Balance 5229 3064 Weight 62.9 kg Lab Results: Accuchecks Date 09/23/18 Time 21:00 Accucheck Value: 118 Accucheck Value: 104 Accucheck Value: 91 Lab Results-Last 24 Hours 09/23/18 Range/Units 11:25 Stl C. cayetanensis PCR NEGATIVE (NEGATIVE) Stl Adenov F 40/41 PCR NEGATIVE (NEGATIVE) Stool Astrovirus (PCR) NEGATIVE (NEGATIVE) Stool Cryptosporidium PCR NEGATIVE (NEGATIVE) Stool EPEC (PCR) NEGATIVE (NEGATIVE) Stool EAEC (PCR) NEGATIVE (NEGATIVE) Stl E. histolytica PCR NEGATIVE (NEGATIVE) Stl P. shigelloides PCR NEGATIVE (NEGATIVE) Stool Sapovirus (PCR) NEGATIVE (NEGATIVE) St Y.enterocolitica PCR NEGATIVE (NEGATIVE) Stool Vibrio (PCR) NEGATIVE (NEGATIVE) Stl Vibrio cholerae PCR NEGATIVE (NEGATIVE) Stl Norovirus GI/GII PCR NEGATIVE (NEGATIVE) Campylobacter (PCR) NEGATIVE (NEGATIVE) C. difficile Toxin A&B POSITIVE A (NEGATIVE) Enterotoxigenic E. coli NEGATIVE (NEGATIVE) E.coli Shiga Toxins NEGATIVE (NEGATIVE) Giardia lamblia NEGATIVE (NEGATIVE) Rotavirus A (PCR) NEGATIVE (NEGATIVE) Salmonella (PCR) NEGATIVE (NEGATIVE) Shigella (PCR) NEGATIVE (NEGATIVE) Assessment/Plan (1) Non-ST elevation [place] (NSTEMI) Current Visit: Yes Status: Acute Code(s): I21.4 - NON-ST ELEVATION (NSTEMI) MYOCARDIAL INFARCTION (2) Pneumonia Current Visit: Yes Status: Acute Qualifiers: Pneumonia type: due to Klebsiella pneumoniae Laterality: right Lung location: unspecified part of lung Qualified Code(s): J15.0 - Pneumonia due to Klebsiella pneumoniae Code(s): J18.9 - PNEUMONIA, UNSPECIFIED ORGANISM (3) Sepsis associated hypotension Current Visit: Yes Status: Acute Assessment & Plan: has proteus and e coli in urine and proteus in blood culture. change to cipro based on sensitivity. also on flagyl for c diff Code(s): A41.9 - SEPSIS, UNSPECIFIED ORGANISM; I95.9 - HYPOTENSION, UNSPECIFIED (4) UTI (urinary tract infection) Current Visit: Yes Status: Acute Qualifiers: Urinary tract infection type: acute pyelonephritis Qualified Code(s): N10 - Acute pyelonephritis Code(s): N39.0 - URINARY TRACT INFECTION, SITE NOT SPECIFIED (5) C. difficile colitis Current Visit: Yes Status: Acute Assessment & Plan: on flagyl
[2018-09-24] MEDS: NEURONTIN 300 MG PO SCH (09:41)
[2018-09-24] MEDS: Vitamin C 500 MG PO SCH (09:41)
[2018-09-24] MEDS: REMERON 30 MG PO SCH (09:41)
[2018-09-24] MEDS: FEOSOL 325 MG PO SCH ×2 (09:42→22:32)
[2018-09-24] MEDS: Protonix 40MG Tablet PO SCH (09:42)
[2018-09-24] MEDS: ZOLOFT 50 MG TABLET PO SCH (09:43)
[2018-09-24] MEDS: TYLENOL EXTRA STRENGTH 500 MG PO PRN (09:43)
[2018-09-24] MEDS: Senokot-S Tablet PO SCH (09:43)
[2018-09-24] MEDS: Artificial Tears 15 ML OP SCH ×2 (09:43→22:36)
[2018-09-24] MEDS: Cardizem CD 120 MG PO SCH (09:44)
[2018-09-24] MEDS: Colace 100 MG PO SCH ×2 (09:44→21:49)
[2018-09-24] MEDS: KENALOG 0.1% OINTMENT TP SCH ×2 (09:44→22:33)
[2018-09-24] MEDS: ROCEPHIN 1 Gm-D5w 50 ml Bag** 1 G/50 ML IVPB IV SCH (09:45)
[2018-09-24] MEDS ORDERED: Levofloxacin 500MG/100ML D5W 500 MG/100 ML BAG IV SCH (10:00)
[2018-09-25] MEDS: FLAGYL 500 MG IVPB 500 MG/100 ML BAG IV SCH ×5 (00:34→22:49)
[2018-09-25 08:24] LABS: Mean Cell Volume 95.1 fl (78-100); Mean Corpuscular Hgb Concent. 30.8 g/dl (32-36); Mean Platelet Volume 10.5 fl (6-9.5); Platelet Count 61 K/mm3 (150-450)
--- NOTE | 2018-09-25 08:34 | PCM.NOTE ---
Date and Time: 09/25/18 0830 Subjective Assessment: patient refused labs over the weekend. he is receiving thickened liquids etc. will be re-evaluated by speech. condition is poor and prognosis is guarded Objective Exam General Appearance: no apparent distress Skin Exam: normal color, warm, dry Respiratory Exam: crackles/rales Cardiovascular Exam: regular rate/rhythm, normal heart sounds Gastrointestinal/Abdomen Exam: soft, No tenderness, No mass Extremity Exam: normal inspection, normal range of motion OBJECTIVE DATA Vital Signs: Vital Signs - 24 hr Temp Pulse Resp BP Pulse Ox 09/25/18 07:37 97.3 F 65 18 131/54 93 L 09/25/18 04:00 97.0 F 87 16 106/50 99 09/25/18 00:00 96.5 F 76 14 114/41 99 09/24/18 20:37 89 22 93 L 09/24/18 20:00 96.9 F 102 H 22 117/60 95 09/24/18 17:41 97.9 F 68 22 122/58 93 L 09/24/18 12:18 97.9 F 68 20 123/60 93 L Oxygen-Last 24 hours O2 Percentage 3 Liters = 32% O2 Percentage 2 Liters = 28% O2 Percentage 2 Liters = 28% O2 Percentage 2 Liters = 28% O2 Percentage 2 Liters = 28% O2 Percentage 2 Liters = 28% Pain Assessment - Last Documented Pain Intensity 2 Pain Scale Used FLACC Intake and Output: Intake & Output 09/22/18 09/23/18 09/24/18 09/25/18 11:59 11:59 11:59 11:59 Intake Total 5719 3664 2400 Output Total 490 600 625 Balance 5229 3064 1775 Weight 62.9 kg Lab Results: Accuchecks Date 09/24/18 Time 21:00 Accucheck Value: 97 Accucheck Value: 117 Accucheck Value: 116 Assessment/Plan (1) Non-ST elevation [place] (NSTEMI) Current Visit: Yes Status: Acute Assessment & Plan: hemodynamically stable, appears to have some mild volume overload today. will reduce IV fluid rate. fluids were required with sepsis present on arrival Code(s): I21.4 - NON-ST ELEVATION (NSTEMI) MYOCARDIAL INFARCTION (2) Pneumonia Current Visit: Yes Status: Acute Qualifiers: Pneumonia type: due to Klebsiella pneumoniae Laterality: right Lung location: unspecified part of lung Qualified Code(s): J15.0 - Pneumonia due to Klebsiella pneumoniae Assessment & Plan: on rocephin, has proteus and e coli in urine, proteus in blood culture sens to ceftriaxone. Code(s): J18.9 - PNEUMONIA, UNSPECIFIED ORGANISM (3) Sepsis associated hypotension Current Visit: Yes Status: Acute Assessment & Plan: bp stabilized, will reduce fluid rate at this time. may require some diuresis Code(s): A41.9 - SEPSIS, UNSPECIFIED ORGANISM; I95.9 - HYPOTENSION, UNSPECIFIED (4) UTI (urinary tract infection) Current Visit: Yes Status: Acute Qualifiers: Urinary tract infection type: acute pyelonephritis Qualified Code(s): N10 - Acute pyelonephritis Code(s): N39.0 - URINARY TRACT INFECTION, SITE NOT SPECIFIED (5) C. difficile colitis Current Visit: Yes Status: Acute Assessment & Plan: on flagyl
[2018-09-25 08:40] LABS: ANION GAP 11.1 MEQ/L (5-15); Calcium 8.3 mg/dL (8.4-10.2); Creatinine 1 1.27 mg/dL (0.66-1.25); Potassium 3.1 mmol/L (3.5-5.1)
[2018-09-25 08:47] LABS: Mean Corpuscular Hemoglobin 29.2 pg (26-32); White Blood Count 27.8 K/mm3 (4.0-10.5)
[2018-09-25 08:50] LABS: ANISOCYTOSIS 1+; BAND 4 % (0.0-2.0); Lymphocytes 1 % (24-44); Neutrophils 95 % (36.-66.); Total Cells Counted 100; Toxic Granulation 2+
[2018-09-25 08:51] LABS: Platelet Estimate DECREASED (NORMAL); Poikilocytosis 1+
[2018-09-25] MEDS: Sodium Chloride 0.9% 10 ML FLUSH Syringe IV SCH ×4 (10:18→22:43)
[2018-09-25] MEDS: ZOLOFT 50 MG TABLET PO SCH (10:35)
[2018-09-25] MEDS: Artificial Tears 15 ML OP SCH ×2 (10:35→22:33)
[2018-09-25] MEDS: Protonix 40MG Tablet PO SCH (10:35)
[2018-09-25] MEDS: Sodium Chloride 0.9% 1000 ML 1,000 ML IV SCH (10:35)
[2018-09-25] MEDS: REMERON 30 MG PO SCH (10:35)
[2018-09-25] MEDS: ROCEPHIN 1 Gm-D5w 50 ml Bag** 1 G/50 ML IVPB IV SCH (10:35)
[2018-09-25] MEDS: Colace 100 MG PO SCH ×2 (10:36→22:33)
[2018-09-25] MEDS: TYLENOL EXTRA STRENGTH 500 MG PO PRN (10:36)
[2018-09-25] MEDS: FEOSOL 325 MG PO SCH ×2 (10:36→22:33)
[2018-09-25] MEDS: NEURONTIN 300 MG PO SCH (10:36)
[2018-09-25] MEDS: Senokot-S Tablet PO SCH (10:37)
[2018-09-25] MEDS: Vitamin C 500 MG PO SCH (10:37)
[2018-09-25] MEDS: KENALOG 0.1% OINTMENT TP SCH ×2 (10:37→22:42)
[2018-09-25] MEDS: Cardizem CD 120 MG PO SCH (10:38)
[2018-09-26] MEDS: FLAGYL 500 MG IVPB 500 MG/100 ML BAG IV SCH (05:16)
[2018-09-26] MEDS: Sodium Chloride 0.9% 10 ML FLUSH Syringe IV SCH (05:16)
[2018-09-26] MEDS ORDERED: Fosamax 70 MG PO SCH (06:00)
[2018-09-26 06:14] LABS: Hematocrit 39.9 % (42-50); Hemoglobin 12.1 gm/dl (12.5-18.0); Mean Cell Volume 95.2 fl (78-100); Mean Corpuscular Hgb Concent. 30.3 g/dl (32-36); Mean Platelet Volume 10.3 fl (6-9.5); Platelet Count 52 K/mm3 (150-450); Red Blood Count 4.19 M/mm3 (4.1-5.6); Red Cell Distribution Width 17.2 % (11.5-14.0); White Blood Count 20.5 K/mm3 (4.0-10.5)
[2018-09-26 06:27] LABS: ALBUMIN 2.1 g/dL (3.5-5.0); ALKALINE PHOSPHATASE 81 U/L (38-126); ANION GAP 10.9 MEQ/L (5-15); BLOOD UREA NITROGEN 37 mg/dL (9-20); CHLORIDE 112 mmol/L (98-107); Calcium 8.4 mg/dL (8.4-10.2); Carbon Dioxide 22 mmol/L (22-30); Creatinine 1 1.18 mg/dL (0.66-1.25); Glucose 90 mg/dL (74-106); Potassium 3.1 mmol/L (3.5-5.1); SGOT/AST 8 U/L (17-59); SGPT/ALT 9 U/L (0-50); SODIUM 142 mmol/L (137-145); Total Protein 4.9 g/dL (6.3-8.2)
[2018-09-26 06:28] LABS: Mean Corpuscular Hemoglobin 28.8 pg (26-32)
[2018-09-26 06:33] LABS: TROPONIN 0.199 ng/mL (0.000-0.034)
[2018-09-26 08:13] VITALS: BP 126/72; PULSE 83; O2SAT 97
[2018-09-26] MEDS: ROCEPHIN 1 Gm-D5w 50 ml Bag** 1 G/50 ML IVPB IV SCH (08:41)
[2018-09-26] MEDS: ZOLOFT 50 MG TABLET PO SCH (08:41)
[2018-09-26] MEDS: Vitamin C 500 MG PO SCH (08:42)
[2018-09-26] MEDS: Cardizem CD 120 MG PO SCH ×2 (08:42→09:00)
[2018-09-26] MEDS: REMERON 30 MG PO SCH (08:42)
[2018-09-26] MEDS: NEURONTIN 300 MG PO SCH (08:42)
[2018-09-26] MEDS: KENALOG 0.1% OINTMENT TP SCH (08:43)
[2018-09-26] MEDS: Protonix 40MG Tablet PO SCH (08:43)
[2018-09-26] MEDS: FEOSOL 325 MG PO SCH (08:43)
[2018-09-26] MEDS: Artificial Tears 15 ML OP SCH (08:43)
--- NOTE | 2018-09-26 09:10 | PCM.NOTE ---
Date and Time: 09/26/18907 Subjective Assessment: still coughing while drinking water, patient is at high aspiration risk but still wannts to drink water, Discussed with son about comfort care and hospice - Review of Systems Constitutional: No Fever, No Chills Eyes: No Symptoms Ears, Nose, & Throat: No Symptoms Respiratory: No Cough, No Short Of Breath Cardiac: No Chest Pain, No Edema, No Syncope Abdominal/Gastrointestinal: No Abdominal Pain, No Nausea, No Vomiting, No Diarrhea Genitourinary Symptoms: No Dysuria Musculoskeletal: No Back Pain, No Neck Pain Skin: No Rash Neurological: No Dizziness, No Focal Weakness, No Sensory Changes Psychological: No Symptoms Endocrine: No Symptoms Hematologic/Lymphatic: No Symptoms Immunological/Allergic: No Symptoms Objective Exam General Appearance: no apparent distress, alert Neurologic Exam: alert, oriented x 3, cooperative, normal mood/affect, nml cerebellar function, sensation nml, No motor deficits Skin Exam: normal color, warm, dry Eye Exam: PERRL, EOMI, eyes nml inspection Ears, Nose, Throat Exam: normal ENT inspection, pharynx normal, moist mucous membranes Neck Exam: normal inspection, non-tender, supple, full range of motion Respiratory Exam: rhonchi, wheezing, No respiratory distress Cardiovascular Exam: regular rate/rhythm, normal heart sounds Gastrointestinal/Abdomen Exam: soft, No tenderness, No mass Extremity Exam: normal inspection, normal range of motion Back Exam: normal inspection, normal range of motion, No CVA tenderness, No vertebral tenderness Male Genitalia Exam: deferred Rectal Exam: deferred OBJECTIVE DATA Vital Signs: Vital Signs - 24 hr Temp Pulse Resp BP Pulse Ox 09/26/18 08:12 98.0 F 83 18 126/72 97 09/26/18 04:00 96.9 F 75 24 121/52 96 09/26/18 00:00 96.7 F 68 22 121/64 96 09/25/18 20:00 97.1 F 63 16 109/55 97 09/25/18 16:00 97.4 F 72 18 112/50 95 09/25/18 12:00 97.6 F 90 18 125/56 97 09/25/18 10:20 65 18 93 L Oxygen-Last 24 hours O2 Percentage 2 Liters = 28% O2 Percentage 2 Liters = 28% O2 Percentage 2 Liters = 28% O2 Percentage 2 Liters = 28% O2 Percentage 2 Liters = 28% O2 Percentage 3 Liters = 32% O2 Percentage 3 Liters = 32% Pain Assessment - Last Documented Pain Intensity 0 Pain Scale Used 0-10 Pain Scale Intake and Output: Intake & Output 09/23/18 09/24/18 09/25/18 09/26/18 11:59 11:59 11:59 11:59 Intake Total 5719 3664 2600 360 Output Total 490 821 743 6779 Balance 5229 3064 1793 -153 Weight 62.9 kg Lab Results: Accuchecks Accucheck Value: 105 Accucheck Value: 120 Accucheck Value: 105 Lab Results-Last 24 Hours 09/26/18 09/26/18 Range/Units 05:30 05:30 WBC 20.5 H (4.0-10.5) K/mm3 RBC 4.19 (4.1-5.6) M/mm3 Hgb 12.1 L (12.5-18.0) gm/dl Hct 39.9 L (42-50) % MCV 95.2 (78-100) fl MCH 28.8 (26-32) pg MCHC 30.3 L (32-36) g/dl RDW 17.2 H (11.5-14.0) % Plt Count 52 L (150-450) K/mm3 MPV 10.3 H (6-9.5) fl Sodium 142 (137-145) mmol/L Potassium 3.1 L (3.5-5.1) mmol/L Chloride 112 H (98-107) mmol/L Carbon Dioxide 22 (22-30) mmol/L Anion Gap 10.9 (5-15) MEQ/L BUN 37 H (9-20) mg/dL Creatinine 1.18 (0.66-1.25) mg/dL Estimated GFR > 60.0 ML/MIN Glucose 90 (74-106) mg/dL Calcium 8.4 (8.4-10.2) mg/dL Magnesium 2.0 (1.6-2.3) mg/dL Total Bilirubin 0.20 (0.2-1.3) mg/dL AST 8 L (17-59) U/L ALT 9 (0-50) U/L Alkaline Phosphatase 81 (38-126) U/L Troponin I 0.199 H* (0.000-0.034) ng/mL Serum Total Protein 4.9 L (6.3-8.2) g/dL Albumin 2.1 L (3.5-5.0) g/dL Multi-Disciplinary Progress Notes: Multi-Disciplinary Progress Notes 09/25/18 15:51 Case Management Note by [facility] PT'S CONDITION AND PROGNOSIS CONT. TO BE GUARDED. D/C PLAN REMAINS TO RETURN BACK TO [place] WHEN PT IS WELL ENOUGH. WILL CONT. TO FOLLOW AND ASSESS FOR ANY D/C NEEDS DURING THIS HOSPITAL STAY. Initialized on 09/25/18 15:51 - END OF NOTE Assessment/Plan (1) Sepsis associated hypotension Current Visit: Yes Status: Resolved Code(s): A41.9 - SEPSIS, UNSPECIFIED ORGANISM; I95.9 - HYPOTENSION, UNSPECIFIED (2) Pneumonia Current Visit: Yes Status: Acute Qualifiers: Pneumonia type: aspiration pneumonia Laterality: right Lung location: unspecified part of lung Code(s): J18.9 - PNEUMONIA, UNSPECIFIED ORGANISM (3) UTI (urinary tract infection) Current Visit: Yes Status: Acute Qualifiers: Urinary tract infection type: acute pyelonephritis Qualified Code(s): N10 - Acute pyelonephritis Code(s): N39.0 - URINARY TRACT INFECTION, SITE NOT SPECIFIED (4) UTI (urinary tract infection) Current Visit: No Status: Acute Onset Date: ~06/15/18 Qualifiers: Indwelling urinary catheter type: unspecified Encounter type: initial encounter Code(s): N39.0 - URINARY TRACT INFECTION, SITE NOT SPECIFIED (5) Atrial fibrillation Current Visit: No Status: Chronic Qualifiers: Atrial fibrillation type: chronic Code(s): I48.91 - UNSPECIFIED ATRIAL FIBRILLATION
[2018-09-26 09:14] LABS: Lymphocytes 2 % (24-44); Monocyte 1 % (0.0-12.0); Neutrophils 97 % (36.-66.); Total Cells Counted 100
[2018-09-26 09:15] LABS: ANISOCYTOSIS 1+; Platelet Estimate DECREASED (NORMAL); Poikilocytosis 1+
[2018-09-26] MEDS: Senokot-S Tablet PO SCH (10:19)
[2018-09-26] MEDS: Colace 100 MG PO SCH (10:19)
--- NOTE | 2018-09-28 15:00 | PCM.DS ---
Discharge Summary Date of Admission: 09/22/18 13:07 Admitting Physician: GARCÍA BRICE Primary Care Provider: NO FAMILY DOCTOR Allergies Allergies No Known Drug Allergies Allergy (Verified 09/22/18 12:38) Hospital Summary - Hospital Course Hospital Course: Last Vital Signs Temp 98.0 F 09/26/18 08:12 Pulse 83 09/26/18 08:12 Resp 18 09/26/18 08:12 BP 126/72 09/26/18 08:12 Pulse Ox 97 09/26/18 08:12 Allergies No Known Drug Allergies Allergy (Verified 09/22/18 12:38) Patient is being discharged back to [place] with hospice care - Vitals & Intake/Output Vital Signs: Vital Signs Temperature 98.0 F 09/26/18 08:12 Pulse Rate 83 09/26/18 08:12 Respiratory Rate 18 09/26/18 08:12 Blood Pressure 126/72 09/26/18 08:12 O2 Sat by Pulse Oximetry 97 09/26/18 08:12 Oxygen-Last Documented O2 Percentage 2 Liters = 28% Intake & Output: Intake & Output 09/26/18 09/27/18 09/28/18 09/29/18 11:59 11:59 11:59 11:59 Intake Total 360 Output Total 1891 Balance -1531 Weight 62.9 kg - Lab Result Diagrams: 09/26/18 05:30 09/26/18 05:30 Micro Results-Entire Visit: Microbiology 09/22/18 07:20 Blood Culture Gram Stain - Final Blood Blood Culture - Final Proteus Mirabilis 09/22/18 07:15 Blood Culture Gram Stain - Final Blood Blood Culture - Final Proteus Mirabilis 09/22/18 06:05 Urine Culture - Final Catherized Proteus Mirabilis Escherichia Coli - Procedures and Test Procedures and Tests throughout Hospitalization: Therapy Orders & Screens 09/22/18 07:36 Respiratory Nebulizer STAT Comment: Diagnosis: Shortness of Breath 09/22/18 08:16 Peak Expiratory Flow Rate ONCE Comment: Reason For Exam: Diagnosis: Shortness of Breath Respiratory Therapy Assessment DAILY Comment: Diagnosis: Shortness of Breath 09/22/18 09:42 Oxygen Nasal Cannula 2 lpm Comment: Diagnosis: Shortness of Breath Respiratory Therapy Consult ROUTINE Comment: Reason For Exam: Diagnosis: Shortness of Breath 09/23/18 10:46 Speech Therapy Eval & Treat [ST Eval & Treat (MD Order)] .as ordered Comment: Physician Instructions: Reason For Exam: Evaluate: Yes Treat: Yes Reason for Eval: r/o aspiration Diagnosis: c/o fever, chills, shortness of breath Discharge Exam General Appearance: no apparent distress, alert Neurologic Exam: alert, No motor deficits Eye Exam: PERRL, EOMI, eyes nml inspection Ears, Nose, Throat Exam: moist mucous membranes Neck Exam: normal inspection, non-tender, supple, full range of motion Respiratory Exam: diminished breath sounds, crackles/rales, rhonchi, No respiratory distress Cardiovascular Exam: regular rate/rhythm, normal heart sounds Gastrointestinal/Abdomen Exam: soft, No tenderness, No mass Male Genitalia Exam: deferred Rectal Exam: deferred Back Exam: normal inspection, normal range of motion, No CVA tenderness, No vertebral tenderness Extremity Exam: normal inspection, normal range of motion Skin Exam: normal color, warm, dry Final Diagnosis/Problem List - Final Discharge Diagnosis/Problem (1) Sepsis associated hypotension Status: Resolved Code(s): A41.9 - SEPSIS, UNSPECIFIED ORGANISM; I95.9 - HYPOTENSION, UNSPECIFIED (2) Pneumonia Status: Resolved Code(s): J18.9 - PNEUMONIA, UNSPECIFIED ORGANISM (3) UTI (urinary tract infection) Status: Resolved Code(s): N39.0 - URINARY TRACT INFECTION, SITE NOT SPECIFIED (4) UTI (urinary tract infection) Status: Resolved Onset Date: ~06/15/18 Code(s): N39.0 - URINARY TRACT INFECTION, SITE NOT SPECIFIED (5) Atrial fibrillation Status: Chronic Code(s): I48.91 - UNSPECIFIED ATRIAL FIBRILLATION - Discharge Discharge Date: 09/26/18 Disposition: DC TO ANY "OTHER" JAIL Condition: Stable Prescriptions: No Action Mag Hydrox/Al Hydrox/Simeth [Mylanta Maximum Strength Liq] 15 ml PO Q4HPRN PRN PRN Reason: Indigestion Docusate Sodium 100 mg [Colace 100 MG] 100 mg PO BID Ascorbic Acid [C-500] 500 mg PO DAILY Alendronate Sodium 70 mg [Fosamax 70 MG] 70 mg PO Q7D Simethicone 160 mg PO Q4HPRN PRN PRN Reason: Gas Sennosides/Docusate Sodium [Senna-S Tablet] 2 tab PO DAILY Mirtazapine [Remeron] 15 mg PO DAILY Omeprazole 20 mg PO DAILY Gabapentin [Neurontin] 300 mg PO DAILY Magnesium Hydroxide 30 ml [Milk of Magnesia 30 ml] 30 ml PO DAILY PRN PRN PRN Reason: Constipation Ferrous Sulfate 325 mg [Feosol 325 mg] 325 mg PO BID Diltiazem HCl 240 mg [Cardizem CD 240 MG] 240 mg PO DAILY Bisacodyl 5 mg [Dulcolax 5 mg] 2 tab PO DAILY PRN PRN Reason: Constipation Dextran 70/Hypromellose/Pf [Artificial Tears Drops] 1 drop OP BID Ipratropium/Albuterol Sulfate [Combivent Respimat 20-100 Mcg] 1 puff IH Q6H PRN PRN Reason: Shortness Of Breath Ipratropium/Albuterol Sulfate [Iprat-Albut 0.5-3(2.5) mg/3 ml] 3 ml IH Q6H PRN PRN Reason: Shortness Of Breath Triamcinolone Acetonide 0.1% [Kenalog 0.1% Ointment] 1 applic TP BID Sertraline HCl [Zoloft] 50 mg PO DAILY Bisacodyl 10 mg [Dulcolax 10 MG SUPP] 10 mg RC UD Losartan Potassium [Cozaar] 25 mg PO DAILY Acetaminophen 500 mg [Tylenol Extra Strength 500 mg] 500 mg PO Q6HPRN PRN PRN Reason: pain/fever Neomy Sulf/Bacitra/Polymyxin * [Triple Antibiotic Ointment] 1 applic TOP DAILY Additional Instructions: JAIL ORDERS HOSPICE CONSULT DIET TOLERATED/REQUESTED BY PT COMFORT MEASURES Forms: Ambulance Transport Record, Transfer Record [facility]
== END 2018-09-26 13:00 | DRG 871 ==
LOC: ED 06:56 → MED SURG 10:20 → OBSVTOIN 13:07
PROVIDERS: ADMIT General Practice; ATTEND General Practice
DX: A41.9 Sepsis, unspecified organism (principal); J18.9 Pneumonia, unspecified organism; I21.4 Non-ST elevation (NSTEMI) myocardial infarction; N39.0 Urinary tract infection, site not specified; A04.72 Enterocolitis due to Clostridium difficile, not specified as recurrent; I95.9 Hypotension, unspecified; I10 Essential (primary) hypertension; I48.91 Unspecified atrial fibrillation; C61 Malignant neoplasm of prostate; Z79.01 Long term (current) use of anticoagulants; Z79.899 Other long term (current) drug therapy
CPT/HCPCS: 36000; 36415; 36600; 70450; 71045; 80048; 80053; 80162; 80307; 81001; 82150; 82375; 82803; 82962; 83036; 83605; 83690; 83735; 83880; 84132; 84484; 85025; 85379; 85610; 87040; 87077; 87086; 87186; 87507; 87631; 93005; 93041; 94640; 94760; 96360; 96361; 96365; 96372; 96374; 96375; 99285; 99291; J0696; J1160; J1956; J3430; J3480; A9270-GY